=== PATIENT | female | born 1995 | race Caucasian/White ===

== ENCOUNTER → 2016-06-18 | Outpatient (CLI) | payer OTHER ==
[~2016-06-18] MED LIST: PRENTAB8 PO
[2016-06-18 11:32] LABS: FOLATE 11.5 NG/ML; VITAMIN B12 LEVEL 318 PG/ML
[2016-06-18 11:39] LABS: ALBUMIN 3.9 GM/DL (3.2-5.2); ALBUMIN/GLOBULIN RATIO 1.44 (1.00-1.93); ALKALINE PHOSPHATASE 70 U/L (45-117); ALT/SGPT 25 U/L (12-78); ANION GAP 8 MEQ/L (8-16); AST/SGOT 16 U/L (15-37); BILIRUBIN,TOTAL 0.4 MG/DL (0.2-1.0); BLOOD UREA NITROGEN 11 MG/DL (7-18); CALCIUM LEVEL 8.6 MG/DL (8.5-10.1); CARBON DIOXIDE LEVEL 27 MEQ/L (21-32); CHLORIDE LEVEL 107 MEQ/L (98-107); CHOLESTEROL LEVEL 214 MG/DL (<200); CREATININE FOR GFR 0.73 MG/DL (0.55-1.02); GLOMERULAR FILTRATION RATE > 60.0 (>60); GLUCOSE, FASTING 83 MG/DL (70-105); MAGNESIUM LEVEL 2.1 MG/DL (1.8-2.4); SODIUM LEVEL 142 MEQ/L (136-145); TOTAL PROTEIN 6.6 GM/DL (6.4-8.2); TRIGLYCERIDES LEVEL 77 MG/DL (<150)
[2016-06-18 15:23] LABS: BASO % 0.3 % (0.0-1.0); EOS # 0.1 K/mm3 (0.0-0.50); EOS % 2.9 % (0.0-3.0); LARGE UNSTAINED CELL # 0.1 K/mm3 (0.0-0.4); LARGE UNSTAINED CELL % 1.6 % (0.0-4.0); LYMPH # 1.6 K/mm3 (1.5-6.5); LYMPH % 39.3 % (24.0-44.0); MEAN CORPUSCULAR HEMOGLOBIN 28.5 pg (27.0-33.0); MEAN CORPUSCULAR HGB CONC 32.4 g/dl (32.0-36.5); MEAN CORPUSCULAR VOLUME 88.2 fl (80.0-96.0); MONO # 0.2 K/mm3 (0.0-0.8); MONO % 4.8 % (0.0-5.0); NEUTROPHILS # 2.1 K/mm3 (1.8-7.7); PLATELET COUNT, AUTOMATED 135 k/mm3 (150-450); RED CELL DISTRIBUTION WIDTH 12.7 % (11.5-14.5); WHITE BLOOD COUNT 4.1 K/mm3 (4.0-10.0)
[2016-06-18 15:34] LABS: ADD MORPHOLOGY? YES
[2016-06-18 16:19] LABS: GIANT PLATELETS 1+
== END ==
LOC: M LAB 10:13
PROVIDERS: ATTEND Emergency Medicine
DX: E55.9 Vitamin D deficiency, unspecified (principal); R20.8 Other disturbances of skin sensation; R00.2 Palpitations

== ENCOUNTER → 2016-10-20 | Outpatient (REF) | payer OTHER ==
[~2016-10-20] MED LIST changes: +CARA1TAB6 PO; +PROT1TAB2 PO
[2016-10-20 12:10] LABS: INR 1.06
[2016-10-20 12:25] LABS: ALBUMIN 4.7 GM/DL (3.2-5.2); FREE T4 1.14 NG/DL (0.76-1.46)
[2016-10-20 12:48] LABS: BASO % 0.5 % (0.0-1.0); LYMPH % 32.7 % (24.0-44.0); MEAN CORPUSCULAR HEMOGLOBIN 29.3 pg (27.0-33.0); MEAN CORPUSCULAR VOLUME 88.7 fl (80.0-96.0); MONO % 6.5 % (0.0-5.0); PLATELET COUNT, AUTOMATED 125 k/mm3 (150-450); WHITE BLOOD COUNT 4.4 K/mm3 (4.0-10.0)
[2016-10-20 12:49] LABS: EOS # 0.1 K/mm3 (0.0-0.50); LARGE UNSTAINED CELL # 0.1 K/mm3 (0.0-0.4); LARGE UNSTAINED CELL % 2.3 % (0.0-4.0); LYMPH # 1.4 K/mm3 (1.5-6.5); MONO # 0.3 K/mm3 (0.0-0.8); NEUTROPHILS # 2.5 K/mm3 (1.8-7.7)
[2016-10-20 14:48] LABS: REASON FOR REVIEW COMPREHENSIVE REVIEW
== END ==
LOC: M SFHCPLAZ 09:29
PROVIDERS: ATTEND Family Medicine
DX: R63.4 Abnormal weight loss (principal); R23.8 Other skin changes

== ENCOUNTER 2016-10-21 01:12 | Emergency (ER) | payer OTHER ==
[~2016-10-21] VITALS: Ht 175.3 cm; Wt 62.7 kg
[~2016-10-21 01:12] MED LIST changes: -CARA1TAB6 PO; -PROT1TAB2 PO
--- NOTE | 2016-10-21 03:20 | REPUSA ---
CLINICAL HISTORY: Abdominal pain. TECHNIQUE: Realtime sonographic images were obtained in multiple projections. COMMENTS: The liver is of normal size, parenchyma demonstrates normal echogenicity. No discrete hepatic mass is seen. There is no intra or extrahepatic biliary ductal dilatation. CBD measures 2mm. The gallbladder is underdistended without evidence of calculi. The gallbladder wall is not thickened and there is no pericholecystic fluid. There is no abdominal ascites. The right kidney measures 10.7 x 4.7 x 4.0 cm, free of hydronephrosis. IMPRESSION: Unremarkable study. Thank you for your kind referral of this patient.
[2016-10-21 03:48] LABS: CONTROL LINE HCG INT CTR LINE PRESENT
[2016-10-21 03:52] LABS: BASO % 0.5 % (0.0-1.0); EOS # 0.1 K/mm3 (0.0-0.50); EOS % 1.3 % (0.0-3.0); LARGE UNSTAINED CELL # 0.1 K/mm3 (0.0-0.4); LARGE UNSTAINED CELL % 1.9 % (0.0-4.0); LYMPH # 2.2 K/mm3 (1.5-6.5); LYMPH % 35.3 % (24.0-44.0); MEAN CORPUSCULAR HEMOGLOBIN 29.2 pg (27.0-33.0); MEAN CORPUSCULAR HGB CONC 33.3 g/dl (32.0-36.5); MEAN CORPUSCULAR VOLUME 87.7 fl (80.0-96.0); MONO # 0.4 K/mm3 (0.0-0.8); MONO % 6.8 % (0.0-5.0); NEUTROPHILS # 3.3 K/mm3 (1.8-7.7); NEUTROPHILS % 54.3 % (36.0-66.0); PLATELET COUNT, AUTOMATED 132 k/mm3 (150-450)
[2016-10-21 03:55] LABS: ALBUMIN 4.3 GM/DL (3.2-5.2); ALBUMIN/GLOBULIN RATIO 1.43 (1.00-1.93); ALKALINE PHOSPHATASE 67 U/L (45-117); ALT/SGPT 21 U/L (12-78); AMYLASE 38 U/L (25-115); ANION GAP 10 MEQ/L (8-16); AST/SGOT 16 U/L (15-37); BILIRUBIN,DIRECT 0.1 MG/DL (0.0-0.2); BILIRUBIN,TOTAL 0.6 MG/DL (0.2-1.0); BLOOD UREA NITROGEN 12 MG/DL (7-18); CALCIUM LEVEL 9.3 MG/DL (8.5-10.1); CARBON DIOXIDE LEVEL 27 MEQ/L (21-32); CHLORIDE LEVEL 106 MEQ/L (98-107); CREATININE FOR GFR 0.83 MG/DL (0.55-1.02); GLOMERULAR FILTRATION RATE > 60.0 (>60); GLUCOSE, FASTING 86 MG/DL (70-105); SODIUM LEVEL 143 MEQ/L (136-145); TOTAL PROTEIN 7.3 GM/DL (6.4-8.2)
[2016-10-21] MEDS ORDERED: PROT1TAB2 PO (04:29)
[2016-10-21] MEDS ORDERED: PANTOPRAZOLE 40MG TAB (PROTONIX) PO ONE (04:30)
[2016-10-21 04:33] VITALS: BP 113/66
== END 2016-10-21 04:44 | disposition home or self-care (01) ==
LOC: M ED 01:12
DX: K29.70 Gastritis, unspecified, without bleeding (principal); Z79.899 Other long term (current) drug therapy

== ENCOUNTER → 2016-10-28 | Outpatient (REF) | payer OTHER ==
[~2016-10-28] MED LIST changes: +CARA1TAB6 PO; +PROT1TAB2 PO
[2016-10-28 16:41] LABS: REASON FOR REVIEW COMPREHENSIVE REVIEW
[2016-10-31 00:06] LABS: H PYLORI SERUM QUANT IgG ABY <0.9 U/mL (0.0-0.8)
== END ==
LOC: M SFHCPLAZ 14:21
PROVIDERS: ATTEND Family Medicine
DX: R10.13 Epigastric pain (principal); D69.6 Thrombocytopenia, unspecified

== ENCOUNTER 2016-11-16 22:47 | Emergency (ER) | payer OTHER ==
[~2016-11-16] VITALS: Ht 175.3 cm; Wt 61.3 kg
[~2016-11-16 22:47] MED LIST changes: -CARA1TAB6 PO
[2016-11-17] MEDS ORDERED: GI COCKTAIL 50ML BTL(HYOSCYAMINE/MAALOX/LIDOCAINE VISCOUS)(1:3:1) PO ONE (01:30)
[2016-11-17 01:56] LABS: ALBUMIN/GLOBULIN RATIO 1.33 (1.00-1.93); ALKALINE PHOSPHATASE 70 U/L (45-117); ALT/SGPT 23 U/L (12-78); AMYLASE 56 U/L (25-115); ANION GAP 5 MEQ/L (8-16); AST/SGOT 18 U/L (15-37); BILIRUBIN,DIRECT < 0.1 MG/DL (0.0-0.2); BILIRUBIN,TOTAL 0.3 MG/DL (0.2-1.0); BLOOD UREA NITROGEN 15 MG/DL (7-18); CALCIUM LEVEL 9.4 MG/DL (8.5-10.1); CARBON DIOXIDE LEVEL 29 MEQ/L (21-32); CHLORIDE LEVEL 106 MEQ/L (98-107); CREATININE FOR GFR 0.94 MG/DL (0.55-1.02); GLOMERULAR FILTRATION RATE > 60.0 (>60); GLUCOSE, FASTING 112 MG/DL (70-105); POTASSIUM SERUM 4.7 MEQ/L (3.5-5.1); SODIUM LEVEL 140 MEQ/L (136-145)
[2016-11-17 02:02] LABS: BASO % 0.6 % (0.0-1.0); EOS # 0.1 K/mm3 (0.0-0.50); EOS % 1.8 % (0.0-3.0); LARGE UNSTAINED CELL # 0.1 K/mm3 (0.0-0.4); LARGE UNSTAINED CELL % 1.7 % (0.0-4.0); LYMPH # 2.3 K/mm3 (1.5-6.5); LYMPH % 35.1 % (24.0-44.0); MEAN CORPUSCULAR HEMOGLOBIN 28.6 pg (27.0-33.0); MEAN CORPUSCULAR HGB CONC 32.6 g/dl (32.0-36.5); MEAN CORPUSCULAR VOLUME 87.7 fl (80.0-96.0); MONO # 0.3 K/mm3 (0.0-0.8); MONO % 4.1 % (0.0-5.0); NEUTROPHILS # 3.8 K/mm3 (1.8-7.7); NEUTROPHILS % 56.7 % (36.0-66.0); PLATELET COUNT, AUTOMATED 135 k/mm3 (150-450); RED CELL DISTRIBUTION WIDTH 12.8 % (11.5-14.5); WHITE BLOOD COUNT 6.7 K/mm3 (4.0-10.0)
[2016-11-17] MEDS ORDERED: CARA1TAB6 PO (02:15)
[2016-11-17 02:21] VITALS: BP 122/78
--- NOTE | 2016-11-17 07:17 | REP ---
Clinical: Epigastric and abdominal pain. Technique: Upright view of the chest with supine and upright views of the abdomen and pelvis. Findings: Frontal upright view of the chest demonstrates no acute cardiopulmonary process or free air below the diaphragm to suspect pneumoperitoneum. Supine and upright views of the abdomen and pelvis demonstrate nonspecific bowel gas pattern without obstruction or perforation. Mild fecal stasis cannot be excluded. No organomegaly. No abnormal calcifications. Skeletal structures normal for age. Impression: Nonspecific bowel gas pattern. Signed by Geovany Ralph MD 11/17/2016 07:08 A
== END 2016-11-17 02:24 | disposition home or self-care (01) ==
LOC: M ED 22:47
DX: R10.13 Epigastric pain (principal); Z79.899 Other long term (current) drug therapy

== ENCOUNTER → 2017-02-16 | Outpatient (REF) | payer OTHER ==
[~2017-02-16] MED LIST changes: +CARA1TAB6 PO
== END ==
LOC: M LAB REF 19:21
PROVIDERS: ATTEND Physician Assistant
DX: J02.9 Acute pharyngitis, unspecified (principal)

== ENCOUNTER 2017-02-19 05:46 | Emergency (ER) | payer OTHER ==
[~2017-02-19] VITALS: Ht 177.8 cm; Wt 61.4 kg
[2017-02-19 05:46] VITALS: BP 125/81
== END 2017-02-19 07:03 | disposition left against medical advice (07) ==
LOC: M ED 05:46
DX: Z53.21 Procedure and treatment not carried out due to patient leaving prior to being seen by health care provider (principal); R06.02 Shortness of breath

== ENCOUNTER 2017-05-15 06:01 | Emergency (ER) | payer OTHER ==
[2017-05-15] MEDS: SUMAtriptan SUCCINATE 6 MG/0.5 ML VIAL SC (06:45)
[2017-05-15] MEDS: ACETAMINOPHEN 325 MG TAB PO (08:17)
[2017-05-15] MEDS: IBUPROFEN 800 MG TAB PO (08:17)
== END 2017-05-15 09:23 | disposition home or self-care (01) ==
LOC: M ED 06:01
DX: R51 Headache (principal); Z86.69 Personal history of other diseases of the nervous system and sense organs
CPT/HCPCS: 93005

== ENCOUNTER → 2017-05-20 | Outpatient (REF) | payer OTHER ==
[2017-05-20 13:14] LABS: BASO % 0.6 % (0.0-1.0); EOS # 0.1 10^3/uL (0.0-0.50); HEMATOCRIT 39.1 % (36.0-47.0); HEMOGLOBIN 12.7 g/dl (12.0-16.0); IMMATURE GRANULOCYTE % 0.2 % (0-3.0); LYMPH # 1.8 10^3/uL (1.5-6.5); LYMPH % 32.7 % (24.0-44.0); MEAN CORPUSCULAR HEMOGLOBIN 28.7 pg (27.0-33.0); MEAN CORPUSCULAR HGB CONC 32.5 g/dl (32.0-36.5); MEAN CORPUSCULAR VOLUME 88.3 fl (80.0-96.0); MONO # 0.5 10^3/uL (0.0-0.8); MONO % 8.7 % (0.0-5.0); NEUTROPHILS % 55.8 % (36.0-66.0); PLATELET COUNT, AUTOMATED 135 10^3/uL (150-450); RED BLOOD COUNT 4.43 10^6/uL (4.00-5.40); RED CELL DISTRIBUTION WIDTH 13.1 % (11.5-14.5); WHITE BLOOD COUNT 5.4 10^3/uL (4.0-10.0)
== END ==
LOC: M LABDRAW1 11:54
DX: D69.6 Thrombocytopenia, unspecified (principal)

== ENCOUNTER → 2017-08-26 | Outpatient (REF) | payer OTHER ==
[2017-08-26 18:18] LABS: FREE T4 0.95 NG/DL (0.76-1.46); THYROID STIMULATING HORMONE 0.488 uIU/ML (0.358-3.740)
[2017-08-27 09:48] LABS: TOTAL 25(OH) VITAMIN D 16.9 NG/ML (30.0-100.0)
== END ==
LOC: M SFHCPLAZ 14:41
DX: R00.0 Tachycardia, unspecified (principal); F43.23 Adjustment disorder with mixed anxiety and depressed mood

== ENCOUNTER → 2017-10-27 | Outpatient (REF) | payer OTHER ==
[2017-10-27 11:55] LABS: CONTROL LINE UCG INT CTR LINE PRESENT; URINE PREG TEST NEGATIVE (NEGATIVE)
[2017-10-27 13:23] LABS: CHLAMYDIA DNA AMPLIFICATION NEGATIVE (NEGATIVE); GC DNA AMPLIFICATION NEGATIVE (NEGATIVE)
== END ==
LOC: M SFHCPLAZ 09:10
DX: Z30.8 Encounter for other contraceptive management (principal)
CPT/HCPCS: 84703

== ENCOUNTER → 2018-03-29 | Outpatient (CLI) | payer OTHER ==
[~2018-03-29] MED LIST changes: +IBUP80TA PO
--- NOTE | 2018-03-29 18:15 | REP ---
RIGHT TIBIA AND FIBULA, FOUR VIEWS: HISTORY: Pain. There is no acute fracture or dislocation. The joint spaces are normal in appearance. IMPRESSION: There is no acute fracture or dislocation. Electronically Signed by Jaylen Guthrie MD 03/29/2018 06:49 P
== END ==
LOC: M LRY 17:39
PROVIDERS: ATTEND Physician Assistant
DX: S89.91XA Unspecified injury of right lower leg, initial encounter (principal); S80.11XA Contusion of right lower leg, initial encounter; W18.30XA Fall on same level, unspecified, initial encounter; Y92.009 Unspecified place in unspecified non-institutional (private) residence as the place of occurrence of the external cause

== ENCOUNTER → 2018-11-28 | Outpatient (CLI) | payer OTHER ==
[2018-11-28 17:59] LABS: BASO % 0.5 % (0.0-1.0); EOS # 0.1 10^3/uL (0.0-0.5); EOS % 2.1 % (0.0-3.0); LYMPH # 1.6 10^3/uL (1.5-5.0); LYMPH % 24.9 % (24.0-44.0); MEAN CORPUSCULAR HEMOGLOBIN 30.4 pg (27.0-33.0); MEAN CORPUSCULAR HGB CONC 33.3 g/dl (32.0-36.5); MEAN CORPUSCULAR VOLUME 91.1 fl (80.0-96.0); MONO # 0.5 10^3/uL (0.0-0.8); MONO % 7.8 % (0.0-5.0); NEUTROPHILS # 4.1 10^3/uL (1.5-8.5); NEUTROPHILS % 64.4 % (36.0-66.0); PLATELET COUNT, AUTOMATED 135 10^3/uL (150-450); RED BLOOD COUNT 3.95 10^6/uL (4.00-5.40); WHITE BLOOD COUNT 6.3 10^3/uL (4.0-10.0)
[2018-11-28 18:56] LABS: CHLAMYDIA DNA AMPLIFICATION POSITIVE (NEGATIVE); GC DNA AMPLIFICATION NEGATIVE (NEGATIVE)
[2018-11-29 02:25] LABS: HIV 1&2 SCREEN CENTAUR NEGATIVE (NEGATIVE); RUBELLA IgG QUALITATIVE IMMUNE (IMMUNE)
[2018-11-30 07:23] LABS: HEPATITIS C VIRUS ABY INDEX 0.1 INDEX (<0.8)
== END ==
LOC: M SMT 14:33
PROVIDERS: ATTEND Advanced Practice Midwife
DX: Z34.81 Encounter for supervision of other normal pregnancy, first trimester (principal); Z3A.00 Weeks of gestation of pregnancy not specified

== ENCOUNTER → 2018-12-16 | Outpatient (REF) | payer OTHER ==
[2018-12-19 12:47] LABS: CHLAMYDIA DNA AMPLIFICATION NEGATIVE (NEGATIVE); GC DNA AMPLIFICATION NEGATIVE (NEGATIVE)
== END ==
LOC: M LAB REF 09:56
PROVIDERS: ATTEND Advanced Practice Midwife
DX: Z34.82 Encounter for supervision of other normal pregnancy, second trimester (principal); Z3A.00 Weeks of gestation of pregnancy not specified

== ENCOUNTER → 2019-01-09 | Outpatient (CLI) | payer OTHER ==
--- NOTE | 2019-01-09 17:47 | REP ---
Clinical: Anatomical evaluation. Comparison: None . Findings: Examination demonstrates a single live intrauterine in breech presentation. motion is identified by technologist. Placenta is noted posterior/fundal and grade zero without evidence for placenta previa or abruption. Amniotic fluid volume is normal. Cervix measures 3.1 cm in length and appears closed. No evidence for nuchal cord. Gestational age by LMP 18 weeks 3 days with BABAR 06/09/2019 . Gestational age by current measurements 18 weeks 1 day with BABAR 06/11/2019 . FHR equals 152 beats per minute. BPD 4.0 cm 18 weeks 0 day HC 14.9 cm 18 weeks 0 days AC 12.5 cm 18 weeks 1 day FL 2.6 cm 17 weeks 5 days HL 2.7 cm 18 weeks for the HC/AC ratio 1.20 Estimated weight 216 grams ( 29 percentile). Anatomical assessment demonstrates normal structures including cranium, choroid plexus, lungs, diaphragm, stomach, cord insertion, and bladder. Impression: Single live intrauterine in breech presentation demonstrating appropriate interval growth. Anatomical assessment is limited and incomplete due to early gestational age. Consider reevaluation at 21-23 weeks. Electronically Signed by Geovany Ralph MD 01/09/2019 05:39 P
== END ==
LOC: M RAD 15:07
PROVIDERS: ATTEND Advanced Practice Midwife
DX: O32.1XX0 Maternal care for breech presentation, not applicable or unspecified (principal); Z36.89 Encounter for other specified antenatal screening; Z3A.18 18 weeks gestation of pregnancy

== ENCOUNTER → 2019-03-08 | Outpatient (CLI) | payer MEDICAID ==
[2019-03-08 12:10] LABS: HEMATOCRIT 34.8 % (36.0-47.0); HEMOGLOBIN 11.1 g/dl (12.0-15.5); MEAN CORPUSCULAR HEMOGLOBIN 30.2 pg (27.0-33.0); MEAN CORPUSCULAR HGB CONC 31.9 g/dl (32.0-36.5); MEAN CORPUSCULAR VOLUME 94.6 fl (80.0-96.0); PLATELET COUNT, AUTOMATED 159 10^3/uL (150-450); RED BLOOD COUNT 3.68 10^6/uL (4.00-5.40)
== END ==
LOC: M LAB 10:42
PROVIDERS: ATTEND Advanced Practice Midwife
DX: O99.112 Other diseases of the blood and blood-forming organs and certain disorders involving the immune mechanism complicating pregnancy, second trimester (principal); Z3A.00 Weeks of gestation of pregnancy not specified

== ENCOUNTER 2019-03-27 09:01 | Emergency (ER) | payer MEDICAID ==
[~2019-03-27] VITALS: Ht 177.8 cm; Wt 81.9 kg
[2019-03-27] MEDS ORDERED: FERR32TA (09:09)
[2019-03-27] MEDS ORDERED: PRENTAB29 (09:09)
[2019-03-27] MEDS ORDERED: DOCU100C16 (09:09)
[2019-03-27 09:44] LABS: BASO % 0.3 % (0.0-1.0); EOS # 0.1 10^3/uL (0.0-0.5); EOS % 1.2 % (0.0-3.0); HEMATOCRIT 34.2 % (36.0-47.0); HEMOGLOBIN 11.2 g/dl (12.0-15.5); LYMPH # 1.4 10^3/uL (1.5-5.0); LYMPH % 13.3 % (24.0-44.0); MEAN CORPUSCULAR HEMOGLOBIN 30.5 pg (27.0-33.0); MEAN CORPUSCULAR HGB CONC 32.7 g/dl (32.0-36.5); MEAN CORPUSCULAR VOLUME 93.2 fl (80.0-96.0); MONO # 0.6 10^3/uL (0.0-0.8); MONO % 5.4 % (0.0-5.0); NEUTROPHILS # 8.2 10^3/uL (1.5-8.5); NEUTROPHILS % 78.4 % (36.0-66.0); PLATELET COUNT, AUTOMATED 137 10^3/uL (150-450); RED BLOOD COUNT 3.67 10^6/uL (4.00-5.40); WHITE BLOOD COUNT 10.4 10^3/uL (4.0-10.0)
[2019-03-27] MEDS ORDERED: NS 1,000 ML IV ONE ×2 (09:45→11:15)
[2019-03-27 09:57] LABS: INR 0.99; PROTHROMBIN TIME 12.8 SECONDS (11.8-14.0)
[2019-03-27 09:58] LABS: PARTIAL THROMBOPLASTIN TIME 28.3 SECONDS (25.0-38.4)
[2019-03-27 10:14] LABS: ALBUMIN 2.8 GM/DL (3.2-5.2); ALT/SGPT 14 U/L (12-78); BILIRUBIN,DIRECT < 0.1 MG/DL (0.0-0.2); BILIRUBIN,TOTAL 0.1 MG/DL (0.2-1.0); BLOOD UREA NITROGEN 8 MG/DL (7-18); CALCIUM LEVEL 8.4 MG/DL (8.5-10.1); CARBON DIOXIDE LEVEL 23 MEQ/L (21-32); CHLORIDE LEVEL 106 MEQ/L (98-107); CK-MB VALUE MASS < 1.0 NG/ML (<3.6); CPK CREATINE PHOSPHOKINASE 37 U/L (26-192); CREATININE FOR GFR 0.56 MG/DL (0.55-1.30); FREE T4 0.88 NG/DL (0.76-1.46); GLOMERULAR FILTRATION RATE > 60.0 (>60); GLUCOSE, FASTING 93 MG/DL (70-100); LIPASE 141 U/L (73-393); POTASSIUM SERUM 3.7 MEQ/L (3.5-5.1); SODIUM LEVEL 138 MEQ/L (136-145); TOTAL PROTEIN 6.6 GM/DL (6.4-8.2); TROPONIN I < 0.02 NG/ML (< 0.10)
[2019-03-27] MEDS ORDERED: ACETAMINOPHEN TAB 650MG DOSE (2X325MG) PO ONE (11:00)
[2019-03-27 11:08] LABS: AMPHETAMINES LEVEL URINE NEGATIVE (NEGATIVE); BARBITURATES URINE NEGATIVE (NEGATIVE); BENZODIAZEPINES URINE NEGATIVE (NEGATIVE); CANNABINOIDS URINE NEGATIVE (NEGATIVE); COCAINE METABOLITE URINE NEGATIVE (NEGATIVE); INFLUENZA A AMPLIFICATION NEGATIVE (NEGATIVE); INFLUENZA B AMPLIFICATION NEGATIVE (NEGATIVE); METHADONE URINE NEGATIVE (NEGATIVE); OPIATES URINE NEGATIVE (NEGATIVE); PHENCYCLIDINE URINE NEGATIVE (NEGATIVE)
[2019-03-27 14:00] VITALS: BP 116/67
[2019-03-27] MEDS ORDERED: PRENTAB9 PO (15:04)
--- NOTE | 2019-03-29 07:36 | ECGEPIP ---
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
== END 2019-03-27 14:38 | disposition admitted as inpatient to this hospital (09) ==
LOC: M ED 09:01
DX: O26.53 Maternal hypotension syndrome, third trimester (principal); O99.513 Diseases of the respiratory system complicating pregnancy, third trimester; J45.909 Unspecified asthma, uncomplicated; O99.113 Other diseases of the blood and blood-forming organs and certain disorders involving the immune mechanism complicating pregnancy, third trimester; D68.0 Von Willebrand disease; Z3A.29 29 weeks gestation of pregnancy; Z79.899 Other long term (current) drug therapy

== ENCOUNTER 2019-03-27 14:42 | Outpatient (CLI) | payer MEDICAID ==
[~2019-03-27] VITALS: Ht 177.8 cm; Wt 81.3 kg
[~2019-03-27 14:42] MED LIST changes: +DOCU100C16; +FERR32TA; +PRENTAB29
[2019-03-27 14:57] VITALS: BP 118/70
[2019-03-27] MEDS ORDERED: PRENTAB9 PO (15:04)
--- NOTE | 2019-03-27 19:37 | IPNPDOC ---
Text Note Date of Service The patient was seen on 03/27/19. NOTE Subjective: Patient is a 24-year-old female who is a at 29.3 weeks gestation with an BABAR of 06/09/19 based off of her LMP and consistent with her first trimester ultrasound. She initiated care in her first trimester with AWP. 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 She presented to the ED after feeling dizzy, light headed, with shakes. Dr. Ridley evaluated patient and gave her 2 bags of fluid due to orthostatic hypotension. She was then brought up to L&D for a NST and reassurance. Patient reports that she feels better since being hydrated. She denies contractions but does reports some abdominal tightening at times that has no discomfort to it. She denies vaginal bleeding or leaking of fluid. She states she feels the baby moving often. Objective: VS: see below. FHR 140, moderate variability, positive accelerations, no deceleration. Contractions: occasional 20 second contractions. A+O x3. Respiratory rate regular with no use of accessory muscles. Abdomen gravid, soft and non-tender with palpation. SVE: closed and thick. Assessment: IUP at 29.3 weeks gestation, orthostatic hypotension related to dehydration, not in labor Plan: Patient encouraged to increase her fluid intake. She is to follow-up with her routine appointment this Wednesday. Reviewed access to care, kick count, labor signs, and danger signs go report. VS,[place], I+O VS, [place], I+O Vital Signs Date Time Temp Pulse Resp B/P (MAP) Pulse Ox O2 Delivery O2 Flow Rate FiO2 03/27/19 14:57 98.0 80 17 118/70 (86) 100 NEAL AHMADI CNM Mar 27, 2019 19:37
== END 2019-03-27 16:17 | disposition home or self-care (01) ==
LOC: M LDO 14:42
PROVIDERS: ATTEND Advanced Practice Midwife
DX: O26.53 Maternal hypotension syndrome, third trimester (principal); O99.283 Endocrine, nutritional and metabolic diseases complicating pregnancy, third trimester; E86.0 Dehydration; O47.03 False labor before 37 completed weeks of gestation, third trimester; Z3A.29 29 weeks gestation of pregnancy

== ENCOUNTER 2019-04-25 17:48 | Emergency (ER) | payer MEDICAID ==
[~2019-04-25] VITALS: Ht 177.8 cm; Wt 84.6 kg
[2019-04-25 17:48] VITALS: BP 141/85
[~2019-04-25 17:48] MED LIST changes: +PRENTAB9 PO
[2019-04-25 23:01] LABS: INFLUENZA A AMPLIFICATION NEGATIVE (NEGATIVE); INFLUENZA B AMPLIFICATION NEGATIVE (NEGATIVE)
[2019-04-26] MEDS ORDERED: OSEL75CA2 PO (00:21)
== END 2019-04-25 21:00 | disposition left against medical advice (07) ==
LOC: M ED 17:48
DX: Z53.29 Procedure and treatment not carried out because of patient's decision for other reasons (principal)

== ENCOUNTER 2019-04-25 20:49 | Outpatient (CLI) | payer MEDICAID ==
[~2019-04-25] VITALS: Ht 177.8 cm; Wt 84.0 kg
[2019-04-25 21:11] VITALS: BP 130/85
[2019-04-25] MEDS ORDERED: LACTATED RINGER'S 1000 ML IV STA (21:52)
[2019-04-25] MEDS ORDERED: FIORICET TAB PO ONE (22:00)
[2019-04-25] MEDS ORDERED: OSELTAMIVIR PHOSPHATE 75 MG CAP (TAMIFLU) PO ONE (22:00)
[2019-04-25 22:32] LABS: HEMATOCRIT 37.2 % (36.0-47.0); HEMOGLOBIN 11.8 g/dl (12.0-15.5); MEAN CORPUSCULAR HEMOGLOBIN 29.3 pg (27.0-33.0); MEAN CORPUSCULAR HGB CONC 31.7 g/dl (32.0-36.5); MEAN CORPUSCULAR VOLUME 92.3 fl (80.0-96.0); PLATELET COUNT, AUTOMATED 135 10^3/uL (150-450); RED BLOOD COUNT 4.03 10^6/uL (4.00-5.40); WHITE BLOOD COUNT 10.9 10^3/uL (4.0-10.0)
[2019-04-25 23:00] VITALS: BP 141/78
[2019-04-25 23:51] VITALS: BP 127/77
[2019-04-26] MEDS ORDERED: OSEL75CA2 PO (00:21)
== END 2019-04-26 00:30 | disposition home or self-care (01) ==
LOC: M LDO 20:49
PROVIDERS: ATTEND Obstetrics & Gynecology
DX: O26.893 Other specified pregnancy related conditions, third trimester (principal); R10.2 Pelvic and perineal pain; R51 Headache; Z20.828 Contact with and (suspected) exposure to other viral communicable diseases; Z3A.33 33 weeks gestation of pregnancy

== ENCOUNTER → 2019-05-09 | Outpatient (REF) | payer MEDICAID ==
[~2019-05-09] MED LIST changes: +OSEL75CA2 PO
== END ==
LOC: M SFHCWAGY 12:21
PROVIDERS: ATTEND Advanced Practice Midwife
DX: O09.213 Supervision of pregnancy with history of pre-term labor, third trimester (principal); Z36.85 Encounter for antenatal screening for Streptococcus B; Z3A.00 Weeks of gestation of pregnancy not specified

== ENCOUNTER → 2019-05-15 | Outpatient (CLI) | payer MEDICAID, OTHER | LOC: M PLALAB 14:20 | PROVIDERS: ATTEND Advanced Practice Midwife | DX: O09.213 Supervision of pregnancy with history of pre-term labor, third trimester (principal); Z3A.00 Weeks of gestation of pregnancy not specified ==

== ENCOUNTER 2019-05-30 18:58 | Inpatient (IN) | payer MEDICAID, OTHER ==
[2019-05-30] VITALS (7 sets, daily range): BP systolic 130–140; BP diastolic 80–93
[~2019-05-30] VITALS: Ht 177.8 cm; Wt 92.3 kg
[2019-05-30] MEDS ORDERED: LR 1,000 ML IV SCH (21:48)
[2019-05-30] MEDS ORDERED: OXYTOCIN DRIP 30 UNITS in IV 1 EA IV SCH (22:00)
[2019-05-30 22:09] LABS: HEMATOCRIT 34.4 % (36.0-47.0); HEMOGLOBIN 11.1 g/dl (12.0-15.5); MEAN CORPUSCULAR HEMOGLOBIN 29.4 pg (27.0-33.0); MEAN CORPUSCULAR HGB CONC 32.3 g/dl (32.0-36.5); PLATELET COUNT, AUTOMATED 143 10^3/uL (150-450); RED BLOOD COUNT 3.78 10^6/uL (4.00-5.40); WHITE BLOOD COUNT 10.8 10^3/uL (4.0-10.0)
[2019-05-31 01:00] VITALS: BP 129/83
[2019-05-31 02:33] VITALS: BP 140/79
[2019-05-31 02:49] VITALS: BP 148/72
[2019-05-31] MEDS ORDERED: ONDANSETRON 4MG/2ML VIAL (J2405) IV PRN (03:15)
[2019-05-31] MEDS ORDERED: RHOGAM 300 MCG (1500 IU) INJ (J2790) IM SCH (03:15)
[2019-05-31] MEDS ORDERED: ACETAMINOPHEN 500 MG TAB PO PRN (03:15)
[2019-05-31] MEDS ORDERED: OXYTOCIN DRIP 30 UNITS in IV 1 EA IV ONE (03:15)
[2019-05-31] MEDS ORDERED: METHYLERGONOVINE MALEATE 0.2 MG TAB PO PRN (03:15)
[2019-05-31] MEDS ORDERED: DIBUCAINE 1% OINTMENT 30GM TOP PRN (03:15)
[2019-05-31] MEDS ORDERED: DOCUSATE SODIUM 100 MG CAP PO PRN (03:15)
[2019-05-31] MEDS ORDERED: IBUPROFEN 600 MG TAB PO PRN (03:15)
[2019-05-31] MEDS ORDERED: MEASLES,MUMPS,RUBELLA VACCINE INJ (MMR-II) (90707) SC SCH (03:15)
[2019-05-31] MEDS ORDERED: ACETAMINOPHEN TAB 650MG DOSE (2X325MG) PO PRN (03:15)
[2019-05-31 03:18] VITALS: BP 134/73
[2019-05-31] MEDS: IBUPROFEN 800 MG TAB PO PRN ×2 (03:23→21:28)
[2019-05-31 06:00] VITALS: BP 139/70
--- NOTE | 2019-05-31 06:42 | HPE ---
DATE OF ADMISSION: 05/30/2019 24-year-old 3, para 1-1-0-2 female at 38-3/7 weeks gestation by last menstrual period (LMP) consistent with 10 week ultrasound presents with contraction every 1-2 minutes for the last several hours. The contractions increased in intensity. She had a small amount of vaginal bleeding. OBSTETRICAL HISTORY: 1. October 2011 at 39 weeks, vaginal delivery, 7 pound 14 ounce male . 2. October 2013 at 33 weeks, vaginal delivery, 4 pound 8 ounce male infant. MEDICAL HISTORY: Noncontributory. SURGICAL HISTORY: Tonsillectomy. ALLERGIES: None. SOCIAL HISTORY: Father of the baby is involved. The patient denies cigarettes, alcohol or drug use. She lives in [place], [place]. FAMILY HISTORY: Noncontributory. PHYSICAL EXAMINATION: Blood pressure 134/74, pulse 84, afebrile. She appears uncomfortable. Head/neck exam: Normal. Lungs: Clear. Heart: Regular rate and rhythm. Abdomen: Nontender, gravid. heart tones category 1. Contractions every 1-2 minutes. Sterile vaginal exam: 4 cm, 80%, -2, posterior, soft, vertex. Extremities nontender. LABS: Group B Streptococcus (GBS) negative. Blood type O positive. ASSESSMENT: 24-year-old G3, P2 female at 38-3/7 weeks gestation presents in labor. PLAN: Patient is admitted on 05/30/2019.
[2019-05-31] MEDS: PRENATAL VITAMINS CHEWABLE TABLET PO SCH (08:43)
--- NOTE | 2019-05-31 13:35 | DN ---
DATE: 05/31/2019 PREDELIVERY DIAGNOSIS: At 38 and 3, labor. POSTDELIVERY DIAGNOSIS: Delivered. PROCEDURE: Spontaneous vaginal delivery. TEST LEAD: Dr. Jaylen Lazcano ANESTHESIA: None. ESTIMATED BLOOD LOSS: 300 mL. FINDINGS: A 7-pound 11-ounce female infant, scores 8 and 9. DELIVERY SUMMARY: After a 5-minute second stage, the patient then spontaneously delivered a 7-pond 11-ounce female , scores 8 and 9 with no delivery anesthesia. Nuchal cord times one was reduced. The shoulders delivered with ease. The was handed to the mother. The cord was then clamped and cut. The placenta delivered spontaneously and appeared to be intact. The patient received intravenous (IV) Pitocin after delivery of the placenta. First-degree perineal laceration was repaired with 2-0 chromic under local anesthesia in the usual fashion. Sponge and needle counts were correct.
[2019-05-31 18:00] VITALS: BP 125/66
[2019-06-01 06:00] VITALS: BP 129/78
[2019-06-01] MEDS: PRENATAL VITAMINS CHEWABLE TABLET PO SCH (08:04)
== END 2019-06-01 17:50 | disposition home or self-care (01) | DRG 560 ==
LOC: M LDO 18:58 → M LDI 21:32 → M OBS 05-31 04:35
PROVIDERS: ADMIT Specialist; ATTEND Specialist
PROC: 10E0XZZ Delivery of Products of Conception, External Approach (ICD-10-PCS; principal; 2019-05-31)
PROC: 0HQ9XZZ Repair Perineum Skin, External Approach (ICD-10-PCS; 2019-05-31)
DX: O69.81X0 Labor and delivery complicated by cord around neck, without compression, not applicable or unspecified (principal); O70.0 First degree perineal laceration during delivery; Z37.0 Single live birth; Z3A.38 38 weeks gestation of pregnancy

== ENCOUNTER → 2019-07-25 | Outpatient (REF) | payer MEDICAID, OTHER ==
[2019-07-25 16:02] LABS: BASO % 0.4 % (0.0-1.0); EOS # 0.2 10^3/uL (0.0-0.5); EOS % 3.3 % (0.0-3.0); HEMATOCRIT 38.2 % (36.0-47.0); HEMOGLOBIN 12.3 g/dl (12.0-15.5); LYMPH # 1.9 10^3/uL (1.5-5.0); LYMPH % 36.3 % (24.0-44.0); MEAN CORPUSCULAR HGB CONC 32.2 g/dl (32.0-36.5); MEAN CORPUSCULAR VOLUME 90.1 fl (80.0-96.0); MONO # 0.4 10^3/uL (0.0-0.8); MONO % 7.7 % (0.0-5.0); NEUTROPHILS # 2.7 10^3/uL (1.5-8.5); NEUTROPHILS % 52.1 % (36.0-66.0); PLATELET COUNT, AUTOMATED 184 10^3/uL (150-450); RED BLOOD COUNT 4.24 10^6/uL (4.00-5.40); WHITE BLOOD COUNT 5.2 10^3/uL (4.0-10.0)
[2019-07-25 16:35] LABS: ALBUMIN 3.6 GM/DL (3.2-5.2); ALT/SGPT 19 U/L (12-78); BILIRUBIN,TOTAL 0.3 MG/DL (0.2-1.0); BLOOD UREA NITROGEN 12 MG/DL (7-18); CALCIUM LEVEL 8.8 MG/DL (8.5-10.1); CARBON DIOXIDE LEVEL 29 MEQ/L (21-32); CHLORIDE LEVEL 106 MEQ/L (98-107); CREATININE FOR GFR 0.73 MG/DL (0.55-1.30); FERRITIN 18 NG/ML (8-252); FREE T4 0.99 NG/DL (0.76-1.46); GLOMERULAR FILTRATION RATE > 60.0 (>60); GLUCOSE, FASTING 85 MG/DL (70-100); POTASSIUM SERUM 3.7 MEQ/L (3.5-5.1); SODIUM LEVEL 140 MEQ/L (136-145); TOTAL PROTEIN 6.8 GM/DL (6.4-8.2); VITAMIN B12 LEVEL 212 PG/ML (247-911)
[2019-07-25 16:58] LABS: H PYLORI QUALITATIVE IgG NEGATIVE (NEGATIVE)
== END ==
LOC: M SFHCPLAZ 13:44
PROVIDERS: ATTEND Family Medicine
DX: D69.6 Thrombocytopenia, unspecified (principal); D68.0 Von Willebrand disease; R10.13 Epigastric pain

== ENCOUNTER → 2020-05-06 | Outpatient (REF) | payer OTHER ==
[2020-05-06 14:44] LABS: BASO % 0.5 % (0.0-1.0); EOS # 0.1 10^3/uL (0.0-0.5); EOS % 1.5 % (0.0-3.0); HEMATOCRIT 40.8 % (36.0-47.0); HEMOGLOBIN 12.9 g/dl (12.0-15.5); LYMPH # 1.7 10^3/uL (1.5-5.0); MEAN CORPUSCULAR HEMOGLOBIN 28.3 pg (27.0-33.0); MEAN CORPUSCULAR HGB CONC 31.6 g/dl (32.0-36.5); MEAN CORPUSCULAR VOLUME 89.5 fl (80.0-96.0); MONO # 0.5 10^3/uL (0.0-0.8); MONO % 7.8 % (0.0-8.0); NEUTROPHILS # 3.7 10^3/uL (1.5-8.5); PLATELET COUNT, AUTOMATED 182 10^3/uL (150-450); RED BLOOD COUNT 4.56 10^6/uL (4.00-5.40); WHITE BLOOD COUNT 5.9 10^3/uL (4.0-10.0)
[2020-05-06 14:54] LABS: ALBUMIN 3.3 GM/DL (3.2-5.2); ALT/SGPT 17 U/L (12-78); BILIRUBIN,TOTAL 0.2 MG/DL (0.2-1.0); BLOOD UREA NITROGEN 11 MG/DL (7-18); CARBON DIOXIDE LEVEL 28 MEQ/L (21-32); CHLORIDE LEVEL 107 MEQ/L (98-107); CHOLESTEROL LEVEL 291 MG/DL (<200); CHOLESTEROL RISK RATIO 3.464 (<5); CREATININE FOR GFR 0.78 MG/DL (0.55-1.30); FERRITIN 26 NG/ML (8-252); FREE T4 0.86 NG/DL (0.76-1.46); GLOMERULAR FILTRATION RATE > 60.0 (>60); GLUCOSE, FASTING 91 MG/DL (70-100); HDL CHOLESTEROL 84 MG/DL (>40); LDL CHOLESTEROL 168 MG/DL (<100); NON-HDL-C 207 MG/DL; POTASSIUM SERUM 4.3 MEQ/L (3.5-5.1); SODIUM LEVEL 141 MEQ/L (136-145); TRIGLYCERIDES LEVEL 194 MG/DL (<150)
[2020-05-06 14:56] LABS: PTH INTACT 61.5 PG/ML (18.5-88.0); VITAMIN B12 LEVEL 1340 PG/ML (247-911)
== END ==
LOC: M SFHCPLAZ 10:47
PROVIDERS: ATTEND Family Medicine
DX: E53.8 Deficiency of other specified B group vitamins (principal); F32.9 Major depressive disorder, single episode, unspecified; F51.04 Psychophysiologic insomnia

== ENCOUNTER 2020-06-10 19:31 | Inpatient (IN) | payer OTHER ==
[~2020-06-10] VITALS: Ht 177.8 cm; Wt 80.1 kg
[2020-06-10] MEDS ORDERED: VENL75TA2 PO (19:51)
[2020-06-10] MEDS ORDERED: TRAZ-257 PO ×2 (19:51→22:20)
[2020-06-10] MEDS ORDERED: ALPR0.25 PO ×2 (19:51→22:20)
[2020-06-10] MEDS ORDERED: ARIP1TAB4 PO (19:51)
[2020-06-10] MEDS ORDERED: NOXI1TAB PO (19:51)
[2020-06-10] MEDS ORDERED: GI COCKTAIL 50ML BTL(HYOSCYAMINE/MAALOX/LIDOCAINE VISCOUS)(1:3:1) PO ONE (20:35)
[2020-06-10] MEDS ORDERED: PANTOPRAZOLE 40MG VIAL (C9113 PER 1) IV ONE (20:35)
[2020-06-10 21:07] LABS: BASO % 0.3 % (0.0-1.0); EOS # 0.1 10^3/uL (0.0-0.5); EOS % 0.7 % (0.0-3.0); HEMATOCRIT 40.8 % (36.0-47.0); HEMOGLOBIN 13.1 g/dl (12.0-15.5); LYMPH # 1.7 10^3/uL (1.5-5.0); LYMPH % 13.6 % (24.0-44.0); MEAN CORPUSCULAR HEMOGLOBIN 28.7 pg (27.0-33.0); MEAN CORPUSCULAR HGB CONC 32.1 g/dl (32.0-36.5); MEAN CORPUSCULAR VOLUME 89.3 fl (80.0-96.0); MONO # 0.7 10^3/uL (0.0-0.8); MONO % 5.9 % (2.0-8.0); NEUTROPHILS # 9.9 10^3/uL (1.5-8.5); NEUTROPHILS % 79.1 % (36.0-66.0); PLATELET COUNT, AUTOMATED 181 10^3/uL (150-450); RED BLOOD COUNT 4.57 10^6/uL (4.00-5.40); WHITE BLOOD COUNT 12.5 10^3/uL (4.0-10.0)
[2020-06-10 21:45] LABS: ALBUMIN 3.7 GM/DL (3.2-5.2); ALT/SGPT 15 U/L (12-78); BILIRUBIN,DIRECT < 0.1 MG/DL (0.0-0.2); BILIRUBIN,TOTAL 0.1 MG/DL (0.2-1.0); BLOOD UREA NITROGEN 8 MG/DL (7-18); CALCIUM LEVEL 8.9 MG/DL (8.5-10.1); CARBON DIOXIDE LEVEL 29 MEQ/L (21-32); CHLORIDE LEVEL 107 MEQ/L (98-107); CK-MB VALUE MASS < 1.0 NG/ML (<3.6); CPK CREATINE PHOSPHOKINASE 119 U/L (26-192); CREATININE FOR GFR 0.81 MG/DL (0.55-1.30); GLOMERULAR FILTRATION RATE > 60.0 (>60); GLUCOSE, FASTING 105 MG/DL (70-100); MB/CK RELATIVE INDEX 0.84 (< OR =4); POTASSIUM SERUM 3.7 MEQ/L (3.5-5.1); SODIUM LEVEL 141 MEQ/L (136-145); TOTAL PROTEIN 7.3 GM/DL (6.4-8.2); TROPONIN I < 0.02 NG/ML (< 0.10)
[2020-06-10 21:49] LABS: HCG, SERUM QUALITATIVE NEGATIVE (NEGATIVE)
[2020-06-10 21:59] LABS: LIPASE 1504 U/L (73-393)
[2020-06-10] MEDS ORDERED: NS 1,000 ML IV SCH (22:06)
[2020-06-10] MEDS ORDERED: VENL150C43 PO (22:20)
[2020-06-10] MEDS ORDERED: VENL75CA47 PO (22:20)
[2020-06-10] MEDS ORDERED: ABIL1TAB13 PO (22:20)
[2020-06-10] MEDS ORDERED: VITA200020 PO (22:20)
[2020-06-10] MEDS ORDERED: RA M10TA PO (22:20)
[2020-06-10] MEDS ORDERED: ESTA0.25 PO (22:20)
[2020-06-10] MEDS: GASTROGRAFIN SOLUTION 30ML PO SCH ×2 (22:27→23:28)
--- NOTE | 2020-06-10 23:09 | REPVR ---
PROCEDURE INFORMATION: Exam: XR Chest Exam date and time: 06/10/2020 10:13 PM Age: 25 years old Clinical indication: Chest pain; Type not specified; Additional info: Chest pain HTN TECHNIQUE: Imaging protocol: XR of the chest Views: 1 view. COMPARISON: CR Abdomen,Flat Upright,PA CHEST 2016-11-17 01:44 FINDINGS: Lungs: Unremarkable. No consolidation. Pleural spaces: Unremarkable. No pleural effusion. No pneumothorax. Heart/Mediastinum: Unremarkable. No cardiomegaly. Bones/joints: Unremarkable. IMPRESSION: No acute findings. Electronically signed by: Gui Harding On 06/10/2020 23:09:24 PM
[2020-06-10 23:26] LABS: RSV AMPLIFICATION NEGATIVE (NEGATIVE)
[2020-06-11] MEDS ORDERED: ISOVUE-370 76% 100ML VIAL As Ordered ONE (00:16)
--- NOTE | 2020-06-11 00:19 | REPVR ---
PROCEDURE INFORMATION: Exam: CT Abdomen And Pelvis With Contrast Exam date and time: 06/10/2020 9:55 PM Age: 25 years old Clinical indication: Abdominal pain; Generalized; Additional info: Gen abd pain TECHNIQUE: Imaging protocol: Computed tomography of the abdomen and pelvis with contrast. Radiation optimization: All CT scans at this facility use at least one of these dose optimization techniques: automated exposure control; mA and/or kV adjustment per patient size (includes targeted exams where dose is matched to clinical indication); or iterative reconstruction. Contrast material: ISO; Contrast volume: 100 ml; Contrast route: INTRAVENOUS (IV); Other contrast: Oral, ggraphin, 600; COMPARISON: 1. US OBS SINGEL GEST 2019-01-09 15:27 2. Abdomen, limited US 2016-10-21 02:50 FINDINGS: Liver: Normal. No mass. Gallbladder and bile ducts: Normal. No calcified stones. No ductal dilation. Pancreas: Normal. No ductal dilation. Spleen: Normal. No splenomegaly. Adrenal glands: Normal. No mass. Kidneys and ureters: Normal. No hydronephrosis. Stomach and bowel: Excess stool in the colon. Appendix: No evidence of appendicitis. Intraperitoneal space: Unremarkable. No free air. No significant fluid collection. Vasculature: Unremarkable. No abdominal aortic aneurysm. Lymph nodes: Unremarkable. No enlarged lymph nodes. Urinary bladder: Unremarkable as visualized. Reproductive: Benign appearing 3 cm left ovarian incidental cyst. Bones/joints: Unremarkable. No acute fracture. Soft tissues: Unremarkable. IMPRESSION: No acute findings. Electronically signed by: Gui Harding On 06/11/2020 00:19:18 AM
[2020-06-11] MEDS ORDERED: ONDANSETRON 4MG/2ML VIAL IV PRN (01:25)
--- NOTE | 2020-06-11 01:29 | HPEPDOC ---
[facility] Medical History & Physical Date of Admission Jun 11, 2020 Date of Service: Jun 11, 2020 Primary Care Physician: Carlos Gill M.D. Attending Physician: AZIZA ZHENG MD History and Physical TIME OF SERVICE: 140am CHIEF COMPLAINT: abdominal pain HISTORY OF PRESENT ILLNESS: This 25 yr old F presented w c/o 12/29 in severity sharp/stabbing epigastric abdominal pain that is associated with nausea, chills & sweating. This is the 3rd or 4th episode over several months. REVIEW OF SYSTEMS: 12-point review of systems negative except as listed in HPI PAST MEDICAL/ SURGICAL HISTORY: Anxiety SOCIAL HISTORY: No tobacco, alcohol or drugs FAMILY HISTORY: HTN, CA, DM ALLERGIES: Please see below. HOME MEDICATIONS: Please see below. PHYSICAL EXAMINATION: Vital Signs Date Time Temp Pulse Resp B/P (MAP) Pulse Ox O2 Delivery O2 Flow Rate FiO2 06/10/20 19:45 97.2 97 20 165/91 (115) 100 Room Air GENERAL APPEARANCE: well nourished and developed HEENT: no scleral icterus CARDIOVASCULAR: RRR/NMRG LUNGS: CTAB ABDOMEN: flat / soft & NT MUSCULOSKELETAL: NCAT INTEGUMENT: no jaundice/ no medina-turners sign NEUROLOGICAL: CN 2-12 intact / speech not dysarthric PSYCHIATRIC: A&Ox3 LABORATORY DATA: 06/10/20 20:45 06/11/20 05:28 06/10/20 20:45: Immature Granulocyte % (Auto) 0.4, Neutrophils (%) (Auto) 79.1H, Lymphocytes (%) (Auto) 13.6L, Monocytes (%) (Auto) 5.9, Eosinophils (%) (Auto) 0.7, Basophils (%) (Auto) 0.3, Neutrophils # (Auto) 9.9H, Lymphocytes # (Auto) 1.7, Monocytes # (Auto) 0.7, Eosinophils # (Auto) 0.1, Basophils # (Auto) 0.0, Nucleated Red Blood Cells % (auto) 0.0, Anion Gap 5L, Glomerular Filtration Rate > 60.0, Calcium Level 8.9, Total Bilirubin 0.1L, Direct Bilirubin < 0.1, Aspartate Amino Transf (AST/SGOT) 10, Alanine Aminotransferase (ALT/SGPT) 15, Alkaline Phosphatase 112, Total Creatine Kinase 119, Creatine Kinase MB < 1.0, Creatine Kinase MB Relative Index 0.84, Troponin I < 0.02, Total Protein 7.3, Albumin 3.7, Albumin/Globulin Ratio 1.0L, Lipase 1504H, Human Chorionic Gonadotropin, Qual NEGATIVE IMAGING: Chest IMPRESSION: No acute findings. CT abd/pelvis IMPRESSION: No acute findings. MICROBIOLOGY: Coronavirus (COVID-19)(PCR) NEGATIVE, Influenza Type A (RT-PCR) NEGATIVE, Influenza Type B (RT-PCR) NEGATIVE, Respiratory Syncytial Virus (PCR) NEGATIVE ASSESSMENT: Ms. Whalen is a 25 yr old who presented w abdominal pain and was found to have an elevated lipase; she will be admitted for acute pancreatitis whos cause is TBD PLAN: 1 Acute pancreatitis Diagnosis made based on Modified [place] Criteria Possible causes include Ethanol, Hyperlipidemia, use estrogen or idiopathic She doesnt have SIRS Plan: admit to medical floor/ advance to CLD / IVF / f/u serum ETO, UDS, lipids / IV Toradol DVT px w SCDs Dispo: home after at least 2 midnights stay Home Medications Scheduled Aripiprazole (Abilify) 2 Mg Tablet, 2 MG PO DAILY Cholecalciferol (Vitamin D3) (Vitamin D3) 50 Mcg Capsule, 50 MCG PO DAILY Melatonin (Melatonin) 10 Mg Tablet, 10 MG PO QHS Norgestimate-Ethinyl Estradiol (Estarylla 0.25-0.035 mg Tablet) 1 Each Tablet, 1 TAB PO QHS Trazodone HCl (Trazodone HCl) 100 Mg Tablet, 100 MG PO QHS Venlafaxine HCl (Venlafaxine HCl ER) 75 Mg Cap.er.24h, 75 MG PO DAILY TAKES WITH 150MG FOR 225MG TOTAL Venlafaxine HCl (Venlafaxine HCl ER) 150 Mg Cap.er.24h, 150 MG PO DAILY TAKES WITH 75MG FOR 225MG TOTAL Scheduled PRN Alprazolam (Alprazolam) 0.25 Mg Tablet, 0.25 MG PO DAILY PRN for ANXIETY Allergies Coded Allergies: No Known Allergies (Unverified , 03/27/19) A-FIB/CHADSVASC A-FIB History Current/History of A-Fib/PAF?: No Current PO Anticoag Therapy: No AZIZA ZHENG MD Jun 11, 2020 01:29
[2020-06-11] MEDS: LR 1,000 ML IV SCH ×6 (02:04→21:54)
[2020-06-11 02:35] LABS: ETHYL ALCOHOL (ETHANOL) < 0.003 % (0.000-0.010); TRIGLYCERIDES LEVEL 153 MG/DL (<150)
[2020-06-11] MEDS: KETOROLAC 30 MG/ML 1ML VIAL IV PRN ×2 (02:42→09:03)
[2020-06-11] MEDS ORDERED: ALPRAZolam 0.25 MG TAB PO PRN (03:10)
[2020-06-11] MEDS: traZODone 100 MG TAB PO SCH ×2 (03:16→21:54)
[2020-06-11 06:00] VITALS: BP 125/84
[2020-06-11 06:00] LABS: HEMATOCRIT 38.3 % (36.0-47.0); HEMOGLOBIN 12.5 g/dl (12.0-15.5); MEAN CORPUSCULAR HEMOGLOBIN 28.7 pg (27.0-33.0); MEAN CORPUSCULAR HGB CONC 32.6 g/dl (32.0-36.5); MEAN CORPUSCULAR VOLUME 87.8 fl (80.0-96.0); PLATELET COUNT, AUTOMATED 169 10^3/uL (150-450); RED BLOOD COUNT 4.36 10^6/uL (4.00-5.40)
[2020-06-11 06:29] LABS: BLOOD UREA NITROGEN 6 MG/DL (7-18); CALCIUM LEVEL 8.4 MG/DL (8.5-10.1); CARBON DIOXIDE LEVEL 27 MEQ/L (21-32); CHLORIDE LEVEL 108 MEQ/L (98-107); CREATININE FOR GFR 0.74 MG/DL (0.55-1.30); GLOMERULAR FILTRATION RATE > 60.0 (>60); GLUCOSE, FASTING 89 MG/DL (70-100); POTASSIUM SERUM 3.9 MEQ/L (3.5-5.1); SODIUM LEVEL 140 MEQ/L (136-145)
[2020-06-11] MEDS ORDERED: E-Z-GAS II EFFERVESCENT PACKET (SODIUM BICARB./CITRIC ACID/SIMETHICONE) As Ordered ONE (08:25)
[2020-06-11] MEDS ORDERED: E-Z-PAQUE 96% w/w SUSP 176GM BTL As Ordered ONE (08:25)
[2020-06-11] MEDS ORDERED: E-Z-HD 98% w/w 340GM SUSP BTL As Ordered ONE (08:25)
[2020-06-11] MEDS ORDERED: ENOXAPARIN 40MG/0.4ML SYRINGE (J1650 PER 10MG) SC SCH (09:00)
[2020-06-11] MEDS: VENLAFAXINE **XR** 75MG CAPSULE PO SCH ×2 (09:02)
[2020-06-11] MEDS: ARIPiprazole 2 MG TAB PO SCH (09:02)
--- NOTE | 2020-06-11 09:23 | REP ---
INDICATION: gastric or duodenal ulcer. COMPARISON: Abdomen/pelvis CT dated 06/11/2020. TECHNIQUE: Single supine AP view of the abdomen. FINDINGS: There is intraluminal bowel contrast in the ascending colon and transverse colon likely administered for the CT exam earlier today. There is no bowel distention or obstruction. There are 2 tiny calcifications in the pelvis on the right, likely phleboliths There are no other calcifications. Skeletal structures and soft tissues are otherwise unremarkable. IMPRESSION: Essentially negative supine abdomen. Intraluminal bowel contrast is incidentally identified as discussed. <Electronically signed by Ming Win > 06/11/20 0919
[2020-06-11] MEDS: PANTOPRAZOLE 40MG VIAL (C9113 PER 1) IV SCH ×2 (10:01→21:54)
--- NOTE | 2020-06-11 10:39 | IPNPDOC ---
Subjective Date Seen The patient was seen on 06/11/20. Objective Physical Examination General Exam: Positive: Alert, Cooperative, No Acute Distress Eye Exam: Positive: PERRLA, Conjunctiva & lids normal, EOMI; Negative: Sclera icteric ENT Exam: Positive: Atraumatic, Mucous membr. moist/pink, Pharynx Normal Neck Exam: Positive: Supple; Negative: JVD, thyromegaly Chest Exam: Positive: Clear to auscultation, Normal air movement Heart Exam: Positive: Rate Normal, Regular Rhythm, Normal S1, Normal S2; Negative: Murmurs, Rubs Abdomen Exam: Positive: Normal bowel sounds, Soft, Tenderness (inthe epigastrium, right upper quadrant and right periumbilical area.); Negative: Hepatospenomegaly Assessment /Plan Assessment This is a 25 yr old who presented w abdominal pain and was found to have an elevated lipase; she was admitted for possible acute pancreatitis. CT abd and pelvis was negative for any pancreatitis. Elevated lipase I do not think patient has acute pancreatitis. No changes in CT scan, no SIRs I think she possibly has gastritis or duodenitis which could also elevate the lipase will start on PPI and sucralfate. CHRONIC MDD/PD C AGORAPHOBIA/SECONDARY INSOMNIA continue home meds B12 DEFICIENCY resolved. VWD, MILD no bleeding issues. VS, I&O, 24H, Fishbone Vital Signs/I&O Vital Signs Date Time Temp Pulse Resp B/P (MAP) Pulse Ox O2 Delivery O2 Flow Rate FiO2 06/11/20 06:00 98.2 78 20 125/84 (98) 99 Room Air I&O- Last 24 Hours up to 6 AM 06/11/20 06:00 Intake Total 1000 ml Output Total 0 ml Balance 1000 ml Laboratory Data 24H LABS Laboratory Tests 2 06/10/20 20:45: Immature Granulocyte % (Auto) 0.4, Neutrophils (%) (Auto) 79.1H, Lymphocytes (%) (Auto) 13.6L, Monocytes (%) (Auto) 5.9, Eosinophils (%) (Auto) 0.7, Basophils (%) (Auto) 0.3, Neutrophils # (Auto) 9.9H, Lymphocytes # (Auto) 1.7, Monocytes # (Auto) 0.7, Eosinophils # (Auto) 0.1, Basophils # (Auto) 0.0, Nucleated Red Blood Cells % (auto) 0.0, Anion Gap 5L, Glomerular Filtration Rate > 60.0, C alcium Level 8.9, Total Bilirubin 0.1L, Direct Bilirubin < 0.1, Aspartate Amino Transf (AST/SGOT) 10, Alanine Aminotransferase (ALT/SGPT) 15, Alkaline Phosphatase 112, Total Creatine Kinase 119, Creatine Kinase MB < 1.0, Creatine Kinase MB Relative Index 0.84, Troponin I < 0.02, Total Protein 7.3, Albumin 3.7, Albumin/Globulin Ratio 1.0L, Triglycerides Level 153H, Lipase 1504H, Human Chorionic Gonadotropin, Qual NEGATIVE, Ethyl Alcohol Level < 0.003 06/10/20 22:29: Coronavirus (COVID-19)(PCR) NEGATIVE, Influenza Type A (RT-PCR) NEGATIVE, Influenza Type B (RT-PCR) NEGATIVE, Respiratory Syncytial Virus (PCR) NEGATIVE 06/11/20 05:28: Nucleated Red Blood Cells % (auto) 0.0, Anion Gap 5L, Glomerular Filtration Rate > 60.0, Calcium Level 8.4L CBC/BMP Laboratory Tests 06/10/20 20:45 06/11/20 05:28 BOYD BROWNLEE MD Jun 11, 2020 10:39
[2020-06-11] MEDS: SUCRALFATE SUSP 1GM/10ML UD PO SCH ×2 (12:14→18:16)
[2020-06-11 14:00] VITALS: BP 125/75
--- NOTE | 2020-06-11 20:36 | ECGEPIP ---
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
[2020-06-11 22:00] VITALS: BP 142/86
[2020-06-12] MEDS: SUCRALFATE SUSP 1GM/10ML UD PO SCH ×2 (00:18→06:09)
[2020-06-12] MEDS: LR 1,000 ML IV SCH ×2 (02:05→06:09)
[2020-06-12 06:00] VITALS: BP 109/71
[2020-06-12 06:45] LABS: HEMATOCRIT 37.5 % (36.0-47.0); MEAN CORPUSCULAR HEMOGLOBIN 28.6 pg (27.0-33.0); MEAN CORPUSCULAR VOLUME 89.3 fl (80.0-96.0); PLATELET COUNT, AUTOMATED 151 10^3/uL (150-450); WHITE BLOOD COUNT 5.3 10^3/uL (4.0-10.0)
[2020-06-12 07:10] LABS: BLOOD UREA NITROGEN 5 MG/DL (7-18); CALCIUM LEVEL 8.6 MG/DL (8.5-10.1); CARBON DIOXIDE LEVEL 29 MEQ/L (21-32); CHLORIDE LEVEL 108 MEQ/L (98-107); CREATININE FOR GFR 0.68 MG/DL (0.55-1.30); GLOMERULAR FILTRATION RATE > 60.0 (>60); GLUCOSE, FASTING 86 MG/DL (70-100); POTASSIUM SERUM 4.1 MEQ/L (3.5-5.1); SODIUM LEVEL 141 MEQ/L (136-145)
[2020-06-12 07:43] LABS: LIPASE 98 U/L (73-393)
[2020-06-12] MEDS: VENLAFAXINE **XR** 75MG CAPSULE PO SCH ×2 (07:58)
[2020-06-12] MEDS: ARIPiprazole 2 MG TAB PO SCH (07:59)
[2020-06-12] MEDS: PANTOPRAZOLE 40MG VIAL (C9113 PER 1) IV SCH (07:59)
[2020-06-12] MEDS ORDERED: PANT40TA29 PO (10:11)
[2020-06-12] MEDS ORDERED: SUCR1TA PO (10:11)
--- NOTE | 2020-06-12 16:56 | DS.PDOC ---
Discharge Summary General Date of Admission Jun 11, 2020 at 01:25 Date of Discharge 06/12/20 Discharge Summary PROCEDURES PERFORMED DURING STAY: [None]. DISCHARGE DIAGNOSES: Acute gastritis/ duodenitis SECONDARY DIAGNOSIS: CHRONIC MDD/PD C AGORAPHOBIA/SECONDARY INSOMNIA B12 DEFICIENCY VWD, MILD COMPLICATIONS/CHIEF COMPLAINT: Acute Pancreatitis. HOSPITAL COURSE: This is a 25 yr old who presented w abdominal pain and was found to have an elevated lipase; she was admitted for possible acute pancreatit is. CT abd and pelvis was negative for any pancreatitis. It was felt that she had acute gastritis / duodenitis. Acute gastritis or duodenitis which could also mildly elevate the lipase started on PPI and sucralfate. CHRONIC MDD/PD C AGORAPHOBIA/SECONDARY INSOMNIA continue home meds B12 DEFICIENCY resolved. VWD, MILD no bleeding issues. DISCHARGE MEDICATIONS: Please see below. ALLERGIES: Please see below. PHYSICAL EXAMINATION ON DISCHARGE: VITAL SIGNS: Please see below. General Exam: Positive: Alert, Cooperative, No Acute Distress Eye Exam: Positive: PERRLA, Conjunctiva & lids normal, EOMI; Negative: Sclera icteric ENT Exam: Positive: Atraumatic, Mucous membr. moist/pink, Pharynx Normal Neck Exam: Positive: Supple; Negative: JVD, thyromegaly Chest Exam: Positive: Clear to auscultation, Normal air movement Heart Exam: Positive: Rate Normal, Regular Rhythm, Normal S1, Normal S2; Negative: Murmurs, Rubs Abdomen Exam: Positive: Normal bowel sounds, Soft, Tenderness (inthe epigastrium, right upper quadrant and right periumbilical area.); Negative: Hepatosplenomegaly LABORATORY DATA: Please see below. ACTIVITY: [As tolerated]. DIET: As tolerated DISPOSITION: Home, Self-Care. DISCHARGE INSTRUCTIONS: PMD in 2 weeks DISCHARGE CONDITION: [Stable]. TIME SPENT ON DISCHARGE: 32 minutes. Vital Signs/I&Os Vital Signs Date Time Temp Pulse Resp B/P (MAP) Pulse Ox O2 Delivery O2 Flow Rate FiO2 06/12/20 06:00 97.8 80 21 109/71 (84) 98 Room Air I&O- Last 24 Hours up to 6 AM 06/12/20 07:00 Intake Total 4470 ml Balance 4470 ml Laboratory Data Labs 24H Laboratory Tests 2 06/12/20 06:29: Nucleated Red Blood Cells % (auto) 0.0, Anion Gap 4L, Glomerular Filtration Rate > 60.0, Calcium Level 8.6, Lipase 98 CBC/BMP Laboratory Tests 06/12/20 06:29 Discharge Medications Scheduled Aripiprazole (Abilify) 2 Mg Tablet, 2 MG PO DAILY, (Reported) Cholecalciferol (Vitamin D3) (Vitamin D3) 50 Mcg Capsule, 50 MCG PO DAILY, (R eported) Melatonin (Melatonin) 10 Mg Tablet, 10 MG PO QHS, (Reported) Norgestimate-Ethinyl Estradiol (Estarylla 0.25-0.035 mg Tablet) 1 Each Tablet, 1 TAB PO QHS, (Reported) Pantoprazole Sodium (Pantoprazole Sodium) 40 Mg Tablet.dr, 40 MG PO QHS Sucralfate (Sucralfate) 1 Gm Tablet, 1 GM PO AC Trazodone HCl (Trazodone HCl) 100 Mg Tablet, 100 MG PO QHS, (Reported) Venlafaxine HCl (Venlafaxine HCl ER) 75 Mg Cap.er.24h, 75 MG PO DAILY, (Reported) TAKES WITH 150MG FOR 225MG TOTAL Venlafaxine HCl (Venlafaxine HCl ER) 150 Mg Cap.er.24h, 150 MG PO DAILY, (Reported) TAKES WITH 75MG FOR 225MG TOTAL Scheduled PRN Alprazolam (Alprazolam) 0.25 Mg Tablet, 0.25 MG PO DAILY PRN for ANXIETY, (Reported) Allergies Coded Allergies: No Known Allergies (Unverified , 03/27/19) BOYD BROWNLEE MD Jun 12, 2020 16:56
== END 2020-06-12 12:03 | disposition home or self-care (01) | DRG 241 ==
LOC: M ED 19:31 → M ED INP 06-11 01:25 → ENRESERV 06-11 01:53 → M MS5PR 06-11 02:29
PROVIDERS: ADMIT Internal Medicine; ATTEND Internal Medicine Nephrology
DX: K29.70 Gastritis, unspecified, without bleeding (principal); E53.8 Deficiency of other specified B group vitamins; F32.9 Major depressive disorder, single episode, unspecified; K29.80 Duodenitis without bleeding; F40.00 Agoraphobia, unspecified; G47.00 Insomnia, unspecified; Z79.899 Other long term (current) drug therapy

== ENCOUNTER 2020-07-26 14:44 | Emergency (ER) | payer OTHER ==
[~2020-07-26] VITALS: Ht 177.8 cm; Wt 86.7 kg
[~2020-07-26 14:44] MED LIST changes: +ABIL1TAB13 PO; +ALPR0.25 PO; +ARIP1TAB4 PO; +ESTA0.25 PO; +NOXI1TAB PO; +PANT40TA29 PO; +RA M10TA PO; +SUCR1TA PO; +TRAZ-257 PO; +VENL150C43 PO; +VENL75CA47 PO; +VENL75TA2 PO; +VITA200020 PO
[2020-07-26 16:27] LABS: BASO % 0.4 % (0.0-1.0); EOS % 0.5 % (0.0-3.0); HEMOGLOBIN 12.7 g/dl (12.0-15.5); LYMPH # 1.5 10^3/uL (1.5-5.0); LYMPH % 18.5 % (24.0-44.0); MEAN CORPUSCULAR HEMOGLOBIN 28.3 pg (27.0-33.0); MEAN CORPUSCULAR HGB CONC 31.8 g/dl (32.0-36.5); MEAN CORPUSCULAR VOLUME 89.1 fl (80.0-96.0); MONO # 0.4 10^3/uL (0.0-0.8); MONO % 5.3 % (2.0-8.0); NEUTROPHILS # 6.1 10^3/uL (1.5-8.5); NEUTROPHILS % 75.1 % (36.0-66.0); PLATELET COUNT, AUTOMATED 194 10^3/uL (150-450); RED BLOOD COUNT 4.49 10^6/uL (4.00-5.40); WHITE BLOOD COUNT 8.2 10^3/uL (4.0-10.0)
[2020-07-26 16:49] LABS: HCG, SERUM QUALITATIVE NEGATIVE (NEGATIVE)
[2020-07-26 16:55] LABS: BLOOD UREA NITROGEN 15 MG/DL (7-18); CARBON DIOXIDE LEVEL 29 MEQ/L (21-32); CHLORIDE LEVEL 106 MEQ/L (98-107); CREATININE FOR GFR 0.74 MG/DL (0.55-1.30); GLOMERULAR FILTRATION RATE > 60.0 (>60); GLUCOSE, FASTING 118 MG/DL (70-100); POTASSIUM SERUM 3.7 MEQ/L (3.5-5.1); SODIUM LEVEL 138 MEQ/L (136-145)
[2020-07-26 16:56] LABS: ALBUMIN 3.3 GM/DL (3.2-5.2); ALT/SGPT 30 U/L (12-78); BILIRUBIN,TOTAL 0.2 MG/DL (0.2-1.0); CALCIUM LEVEL 9.4 MG/DL (8.5-10.1); FREE THYROXINE INDEX 3.5 % (1.3-4.8); LIPASE 96 U/L (73-393); T UPTAKE 28 % (30-39); THYROID STIMULATING HORMONE 0.926 uIU/ML (0.358-3.740); THYROXINE (T4) 12.6 UG/DL (4.5-12.0); TOTAL PROTEIN 6.6 GM/DL (6.4-8.2)
[2020-07-26] MEDS ORDERED: GI COCKTAIL 50ML BTL(HYOSCYAMINE/MAALOX/LIDOCAINE VISCOUS)(1:3:1) PO ONE (17:40)
[2020-07-26 18:55] VITALS: BP 127/77
--- NOTE | 2020-07-26 19:20 | ECGEPIP ---
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
== END 2020-07-26 18:57 | disposition home or self-care (01) ==
LOC: M ED 14:44
DX: R00.2 Palpitations (principal); K29.00 Acute gastritis without bleeding; Z79.899 Other long term (current) drug therapy

== ENCOUNTER → 2020-08-01 | Outpatient (REF) | payer OTHER ==
[2020-08-01 16:04] LABS: ALBUMIN 3.7 GM/DL (3.2-5.2); ALT/SGPT 26 U/L (12-78); BILIRUBIN,DIRECT < 0.1 MG/DL (0.0-0.2); BILIRUBIN,TOTAL 0.2 MG/DL (0.2-1.0); C REACTIVE PROTEIN QUANTITATIV 1.66 MG/DL (0.00-0.30); CHOLESTEROL LEVEL 295 MG/DL (<200); CHOLESTEROL RISK RATIO 3.041 (<5); HDL CHOLESTEROL 97 MG/DL (>40); LDL CHOLESTEROL 163 MG/DL (<100); LIPASE 133 U/L (73-393); NON-HDL-C 198 MG/DL; TOTAL PROTEIN 7.2 GM/DL (6.4-8.2); TRIGLYCERIDES LEVEL 175 MG/DL (<150)
[2020-08-03 12:08] LABS: H PYLORI SERUM QUANT IgG ABY 0.14 (0.00-0.79); TISSUE TRANSGLUTAMINASE IgA <2 U/mL (0-3)
== END ==
LOC: M SFHCPLAZ 12:12
PROVIDERS: ATTEND Family Medicine
DX: R10.13 Epigastric pain (principal); E78.2 Mixed hyperlipidemia

== ENCOUNTER → 2020-08-21 | Outpatient (CLI) | payer OTHER ==
--- NOTE | 2020-08-21 09:38 | REP ---
INDICATION: EPIGASTRIC PAIN COMPARISON: None. TECHNIQUE: Real time johnson scale ultrasound examination using curved array transducer. FINDINGS: Liver is normal in contour, size, and echogenicity without focal hepatic lesions identified. Pancreas is incompletely evaluated due to interposed bowel gas. The gallbladder is normal and without gallstones, wall thickening, or pericholecystic fluid. No biliary ductal dilatation is appreciated and the common bile duct measures 4.0 mm diameter. Right kidney is normal in reniform shape without hydronephrosis and measures 11.3 x 5.2 x 4.1 cm. No ascites in the visualized right upper quadrant. IMPRESSION: Normal limited right upper quadrant ultrasound <Electronically signed by Geovany Ralph > 08/21/20 [id number]
== END ==
LOC: M RAD 08:35
PROVIDERS: ATTEND Family Medicine
DX: R10.13 Epigastric pain (principal)

== ENCOUNTER 2020-11-02 05:54 | Emergency (ER) | payer OTHER ==
[~2020-11-02] VITALS: Ht 177.8 cm; Wt 91.9 kg
[2020-11-02 08:40] VITALS: BP 138/74
--- NOTE | 2020-11-02 08:49 | REP ---
INDICATION: pain and swelling. COMPARISON: None. TECHNIQUE: Duplex FINDINGS: There is no evidence of deep venous thrombosis above or below the knee IMPRESSION: Negative venous duplex examination left lower extremity. <Electronically signed by Delonte Aparicio > 11/02/20 0880
== END 2020-11-02 08:46 | disposition home or self-care (01) ==
LOC: M ED 05:54
DX: M79.662 Pain in left lower leg (principal); M79.672 Pain in left foot; G43.909 Migraine, unspecified, not intractable, without status migrainosus; Z79.899 Other long term (current) drug therapy

== ENCOUNTER → 2020-11-05 | Outpatient (CLI) | payer OTHER ==
--- NOTE | 2020-11-05 14:26 | REP ---
INDICATION: M79.672 PAIN IN LEFT FOOT. COMPARISON: None. TECHNIQUE: Four views FINDINGS: The joint spaces are symmetric and relatively well maintained. There is no evidence of acute fracture or destructive osseous lesion. There is a tiny plantar calcaneal heel spur. IMPRESSION: No acute abnormality <Electronically signed by José Miguel Oh > 11/05/20 [id number]
== END ==
LOC: M WUC 11:52
PROVIDERS: ATTEND Physician Assistant
DX: M79.672 Pain in left foot (principal)

== ENCOUNTER → 2021-02-06 | Outpatient (REF) | payer OTHER | LOC: M LAB REF 10:02 | PROVIDERS: ATTEND Physician Assistant | DX: R05.9 Cough, unspecified (principal) ==

== ENCOUNTER → 2021-03-03 | Outpatient (CLI) | payer OTHER ==
[2021-03-03 20:10] LABS: HEMATOCRIT 35.3 % (36.0-47.0); HEMOGLOBIN 11.2 g/dl (12.0-15.5); MEAN CORPUSCULAR HGB CONC 31.7 g/dl (32.0-36.5); MEAN CORPUSCULAR VOLUME 88.3 fl (80.0-96.0); PLATELET COUNT, AUTOMATED 150 10^3/uL (150-450); WHITE BLOOD COUNT 6.6 10^3/uL (4.0-10.0)
[2021-03-03 21:11] LABS: HEPATITIS C VIRUS ABY INDEX 0.1 INDEX (<0.8); HIV 1&2 SCREEN CENTAUR NEGATIVE (NEGATIVE)
[2021-03-03 23:35] LABS: GC DNA AMPLIFICATION NEGATIVE (NEGATIVE)
== END ==
LOC: M WUC 15:15
PROVIDERS: ATTEND Specialist
DX: Z34.81 Encounter for supervision of other normal pregnancy, first trimester (principal)

== ENCOUNTER 2021-05-09 11:19 | Emergency (ER) | payer OTHER ==
[~2021-05-09] VITALS: Ht 177.8 cm; Wt 90.2 kg
[2021-05-09 11:58] LABS: BASO % 0.4 % (0.0-1.0); EOS # 0.1 10^3/uL (0.0-0.5); EOS % 1.3 % (0.0-3.0); HEMATOCRIT 33.2 % (36.0-47.0); HEMOGLOBIN 10.8 g/dl (12.0-15.5); LYMPH # 1.6 10^3/uL (1.5-5.0); LYMPH % 18.8 % (24.0-44.0); MEAN CORPUSCULAR HEMOGLOBIN 28.8 pg (27.0-33.0); MEAN CORPUSCULAR HGB CONC 32.5 g/dl (32.0-36.5); MEAN CORPUSCULAR VOLUME 88.5 fl (80.0-96.0); MONO # 0.7 10^3/uL (0.0-0.8); NEUTROPHILS # 5.9 10^3/uL (1.5-8.5); NEUTROPHILS % 70.8 % (36.0-66.0); PLATELET COUNT, AUTOMATED 152 10^3/uL (150-450); RED BLOOD COUNT 3.75 10^6/uL (4.00-5.40); WHITE BLOOD COUNT 8.3 10^3/uL (4.0-10.0)
[2021-05-09 12:20] LABS: CK-MB VALUE MASS < 1.0 NG/ML (<3.6); CPK CREATINE PHOSPHOKINASE 56 U/L (26-192); MB/CK RELATIVE INDEX 1.79 (< OR =4)
[2021-05-09 12:27] LABS: BLOOD UREA NITROGEN 6 MG/DL (7-18); CALCIUM LEVEL 8.5 MG/DL (8.5-10.1); CARBON DIOXIDE LEVEL 23 MEQ/L (21-32); CHLORIDE LEVEL 109 MEQ/L (98-107); GLOMERULAR FILTRATION RATE > 60.0 (>60); GLUCOSE, FASTING 91 MG/DL (70-100); MAGNESIUM LEVEL 1.7 MG/DL (1.8-2.4); POTASSIUM SERUM 3.6 MEQ/L (3.5-5.1); SODIUM LEVEL 140 MEQ/L (136-145)
[2021-05-09] MEDS ORDERED: PROM25TA12 PO (14:20)
[2021-05-09 16:58] VITALS: BP 121/64
== END 2021-05-09 16:58 | disposition home or self-care (01) ==
LOC: M ED 11:19
DX: O99.43 Diseases of the circulatory system complicating the puerperium (principal); R00.2 Palpitations; F41.8 Other specified anxiety disorders; Z3A.20 20 weeks gestation of pregnancy

== ENCOUNTER → 2021-05-27 | Outpatient (CLI) | payer OTHER ==
[~2021-05-27] MED LIST changes: +PROM25TA12 PO
== END ==
LOC: M RAD 13:15
PROVIDERS: ATTEND Specialist
DX: Z34.82 Encounter for supervision of other normal pregnancy, second trimester (principal)

== ENCOUNTER → 2021-06-26 | Outpatient (CLI) | payer OTHER | LOC: M WHC 09:54 | PROVIDERS: ATTEND Specialist | DX: Z34.82 Encounter for supervision of other normal pregnancy, second trimester (principal); Z3A.27 27 weeks gestation of pregnancy ==

== ENCOUNTER → 2021-06-30 | Outpatient (CLI) | payer OTHER ==
[2021-06-30 11:40] LABS: HEMATOCRIT 34.2 % (36.0-47.0); HEMOGLOBIN 11.1 g/dl (12.0-15.5); MEAN CORPUSCULAR HEMOGLOBIN 28.7 pg (27.0-33.0); MEAN CORPUSCULAR HGB CONC 32.5 g/dl (32.0-36.5); MEAN CORPUSCULAR VOLUME 88.4 fl (80.0-96.0); PLATELET COUNT, AUTOMATED 191 10^3/uL (150-450); RED BLOOD COUNT 3.87 10^6/uL (4.00-5.40); WHITE BLOOD COUNT 10.3 10^3/uL (4.0-10.0)
[2021-06-30 13:24] LABS: GC DNA AMPLIFICATION NEGATIVE (NEGATIVE)
== END ==
LOC: M LAB 09:23
PROVIDERS: ATTEND Specialist
DX: Z36.89 Encounter for other specified antenatal screening (principal)

== ENCOUNTER → 2021-07-04 | Outpatient (CLI) | payer OTHER | LOC: M PLALAB 11:49 | PROVIDERS: ATTEND Advanced Practice Midwife | DX: O28.3 Abnormal ultrasonic finding on antenatal screening of mother (principal) ==

== ENCOUNTER → 2021-07-10 | Outpatient (CLI) | payer OTHER | LOC: M LAB 08:11 | PROVIDERS: ATTEND Advanced Practice Midwife | DX: O99.810 Abnormal glucose complicating pregnancy (principal); O28.3 Abnormal ultrasonic finding on antenatal screening of mother ==

== ENCOUNTER 2021-07-13 23:02 | Outpatient (CLI) | payer OTHER ==
[~2021-07-13] VITALS: Ht 177.8 cm; Wt 93.6 kg
[2021-07-13 23:11] VITALS: BP 129/83
== END 2021-07-14 00:03 | disposition home or self-care (01) ==
LOC: M LDO 23:02
PROVIDERS: ATTEND Specialist
DX: O26.893 Other specified pregnancy related conditions, third trimester (principal); R10.30 Lower abdominal pain, unspecified; Z3A.29 29 weeks gestation of pregnancy

== ENCOUNTER → 2021-08-27 | Outpatient (REF) | payer OTHER | LOC: M SFHCWAGY 12:48 | PROVIDERS: ATTEND Specialist | DX: Z36.85 Encounter for antenatal screening for Streptococcus B (principal) ==

== ENCOUNTER 2021-09-05 14:06 | Outpatient (CLI) | payer OTHER ==
[~2021-09-05] VITALS: Ht 177.8 cm; Wt 100.9 kg
[2021-09-05 14:24] VITALS: BP 135/80
[2021-09-05] MEDS ORDERED: HOME MED LIST COMPLETE! XX SCH (14:45)
== END 2021-09-05 15:00 | disposition home or self-care (01) ==
LOC: M LDO 14:06
PROVIDERS: ATTEND Specialist
DX: O26.893 Other specified pregnancy related conditions, third trimester (principal); R10.30 Lower abdominal pain, unspecified; Z3A.37 37 weeks gestation of pregnancy

== ENCOUNTER 2021-09-11 12:28 | Inpatient (IN) | payer OTHER ==
[~2021-09-11] VITALS: Ht 177.8 cm; Wt 100.2 kg
[2021-09-11] VITALS (17 sets, daily range): BP systolic 108–143; BP diastolic 56–82
[2021-09-11] MEDS ORDERED: OXYTOCIN DRIP 30 UNITS in IV 1 EA IV SCH (18:20)
[2021-09-11 18:53] LABS: HEMATOCRIT 33.2 % (36.0-47.0); HEMOGLOBIN 10.6 g/dl (12.0-15.5); MEAN CORPUSCULAR HEMOGLOBIN 27.6 pg (27.0-33.0); MEAN CORPUSCULAR HGB CONC 31.9 g/dl (32.0-36.5); MEAN CORPUSCULAR VOLUME 86.5 fl (80.0-96.0); PLATELET COUNT, AUTOMATED 130 10^3/uL (150-450); RED BLOOD COUNT 3.84 10^6/uL (4.00-5.40); WHITE BLOOD COUNT 10.6 10^3/uL (4.0-10.0)
[2021-09-11] MEDS: LR 1,000 ML IV SCH (19:37)
[2021-09-11] MEDS ORDERED: LIDOCAINE 1% MDV 20ML VIAL As Ordered ONE (23:29)
[2021-09-11] MEDS ORDERED: DIBUCAINE 1% OINTMENT 30GM TOP PRN (23:50)
[2021-09-11] MEDS ORDERED: IBUPROFEN 600MG TAB PO PRN (23:50)
[2021-09-11] MEDS ORDERED: IBUPROFEN 800 MG TAB PO PRN (23:50)
[2021-09-11] MEDS ORDERED: RHOGAM 300 MCG (1500 IU) INJ (J2790) IM SCH (23:50)
[2021-09-11] MEDS ORDERED: METHYLERGONOVINE MALEATE 0.2 MG TAB PO PRN (23:50)
[2021-09-11] MEDS ORDERED: LIDOCAINE 1% MDV 20ML VIAL INFIL ONE (23:50)
[2021-09-11] MEDS ORDERED: ACETAMINOPHEN TAB 650MG DOSE (2X325MG) PO PRN (23:50)
[2021-09-11] MEDS ORDERED: OXYTOCIN DRIP 30 UNITS in IV 1 EA IV ONE (23:50)
[2021-09-11] MEDS ORDERED: DOCUSATE SODIUM 100MG CAPSULE PO PRN (23:50)
[2021-09-12 00:13] VITALS: BP 129/67
[2021-09-12 00:34] VITALS: BP 142/76
[2021-09-12 01:25] VITALS: BP 125/74
[2021-09-12] MEDS: LR 1,000 ML IV SCH (02:20)
[2021-09-12 06:00] VITALS: BP 127/64
[2021-09-12] MEDS: PRENATAL VITAMINS CHEWABLE TABLET PO SCH (07:38)
[2021-09-12] MEDS: ACETAMINOPHEN 500 MG TAB PO PRN ×2 (07:38→14:34)
[2021-09-12 18:00] VITALS: BP 126/75
[2021-09-13 06:00] VITALS: BP 109/55
[2021-09-13] MEDS ORDERED: MEASLES,MUMPS,RUBELLA VACCINE INJ (MMR-II) (90707) SC.IMMUN ONE (09:00)
[2021-09-13] MEDS: PRENATAL VITAMINS CHEWABLE TABLET PO SCH (09:27)
[2021-11-12] MEDS ORDERED: VENL150C43 PO (07:42)
== END 2021-09-13 12:27 | disposition home or self-care (01) | DRG 560 ==
LOC: M LDO 12:28 → M LDI 18:12 → M OBS 09-12 01:20
PROVIDERS: ADMIT Specialist; ATTEND Specialist
PROC: 10E0XZZ Delivery of Products of Conception, External Approach (ICD-10-PCS; principal; 2021-09-11)
PROC: 0HQ9XZZ Repair Perineum Skin, External Approach (ICD-10-PCS; 2021-09-11)
PROC: 10907ZC Drainage of Amniotic Fluid, Therapeutic from Products of Conception, Via Natural or Artificial Opening (ICD-10-PCS; 2021-09-11)
DX: O70.0 First degree perineal laceration during delivery (principal); Z37.0 Single live birth; Z3A.38 38 weeks gestation of pregnancy

== ENCOUNTER → 2021-11-23 | Outpatient (CLI) | payer OTHER | LOC: M LABSMTC 09:53 | PROVIDERS: ATTEND Anesthesiology | DX: Z01.812 Encounter for preprocedural laboratory examination (principal); Z20.822 Contact with and (suspected) exposure to COVID-19 ==

== ENCOUNTER 2021-11-26 05:59 | Day surgery (SDC) | payer OTHER ==
[~2021-11-26] VITALS: Ht 177.8 cm; Wt 85.0 kg
[2021-11-26] MEDS ORDERED: LR 1,000 ML IV SCH ×2 (06:35→08:30)
[2021-11-26 06:39] LABS: HEMATOCRIT 39.5 % (36.0-47.0); HEMOGLOBIN 12.8 g/dl (12.0-15.5); MEAN CORPUSCULAR HEMOGLOBIN 27.5 pg (27.0-33.0); MEAN CORPUSCULAR HGB CONC 32.4 g/dl (32.0-36.5); MEAN CORPUSCULAR VOLUME 84.8 fl (80.0-96.0); PLATELET COUNT, AUTOMATED 169 10^3/uL (150-450); RED BLOOD COUNT 4.66 10^6/uL (4.00-5.40); WHITE BLOOD COUNT 5.5 10^3/uL (4.0-10.0)
[2021-11-26] MEDS ORDERED: propofoL 200 MG/20 ML VIAL As Ordered ONE ×2 (07:20→08:28)
[2021-11-26] MEDS ORDERED: ROCURONIUM BROMIDE 50 MG/5 ML VIAL As Ordered ONE (07:20)
[2021-11-26] MEDS ORDERED: LIDOCAINE 2% 100MG/5ML SDV (FOR ANES.) As Ordered ONE (07:20)
[2021-11-26] MEDS ORDERED: MIDAZOLAM INJ 2MG/2ML VIAL (J2250 PER 1MG) As Ordered ONE (07:21)
[2021-11-26] MEDS ORDERED: ONDANSETRON 4MG 2ML VIAL As Ordered ONE (07:21)
[2021-11-26] MEDS ORDERED: dexameTHASONE 4 MG/ML 1ML VIAL (J1100 PER 1MG) As Ordered ONE (07:21)
[2021-11-26] MEDS ORDERED: fentaNYL 100 MCG/2 ML INJECTION As Ordered ONE ×2 (07:21→08:04)
[2021-11-26] MEDS ORDERED: BUPIVACAINE HCL 0.25% 30ML VIAL As Ordered ONE (07:21)
[2021-11-26] MEDS ORDERED: SUGAMMADEX SODIUM 500 MG/5 ML VIAL (BRIDION) As Ordered ONE (08:22)
[2021-11-26] MEDS ORDERED: KETOROLAC 60MG 2ML VIAL As Ordered ONE (08:22)
[2021-11-26] MEDS ORDERED: ACETAMINOPHEN 1000MG 100ML IV BTL (OFIRMEV) (J0131 PER 10MG) As Ordered ONE (08:23)
[2021-11-26] MEDS ORDERED: ONDANSETRON 4MG 2ML VIAL IV PRN (08:30)
[2021-11-26] MEDS ORDERED: oxyCODONE 5MG TAB PO PRN (08:30)
[2021-11-26] MEDS ORDERED: fentaNYL 100 MCG/2 ML INJECTION IV PRN (08:30)
[2021-11-26] MEDS ORDERED: MORPHINE 2 MG/ML 1ML VIAL IV PRN (08:30)
[2021-11-26] MEDS ORDERED: METOCLOPRAMIDE INJ 10MG/2ML VIAL (J2765 PER 1) As Ordered ONE (08:39)
[2021-11-26] MEDS ORDERED: PERCOCET 5MG/325MG TAB PO PRN (08:55)
[2021-11-26 10:05] VITALS: BP 121/76
[2021-11-26] MEDS ORDERED: IBUP80TA PO (11:10)
[2021-11-26] MEDS ORDERED: PERCOCET PO (11:10)
[2021-11-26] MEDS ORDERED: KETOROLAC 30 MG/ML 1ML VIAL IV SCH (14:00)
== END 2021-11-26 10:05 | disposition home or self-care (01) ==
LOC: M SDC 05:59
PROVIDERS: ATTEND Obstetrics & Gynecology
DX: Z30.2 Encounter for sterilization (principal); Q43.8 Other specified congenital malformations of intestine; R19.00 Intra-abdominal and pelvic swelling, mass and lump, unspecified site
CPT/HCPCS: 36415; 58661; 85027; 86850; 86900; 86901; 88302; 88307; J0131; J1100; J1885; J2250; J2405; J2765; J3010

== ENCOUNTER 2023-08-10 20:10 | Emergency (ER) | payer OTHER ==
[~2023-08-10] VITALS: Ht 177.8 cm; Wt 82.5 kg
[~2023-08-10 20:10] MED LIST changes: +PERCOCET PO
[2023-08-10] MEDS ORDERED: keflex (20:47)
[2023-08-10] MEDS: dexAMETHasone 20MG/5ML VIAL IV ONE (23:10)
[2023-08-10 23:30] VITALS: BP 115/68; TEMP 97.4; O2SAT 99
== END 2023-08-11 00:15 | disposition home or self-care (01) ==
LOC: M ED 20:10
DX: R21 Rash and other nonspecific skin eruption (principal); T36.1X5A Adverse effect of cephalosporins and other beta-lactam antibiotics, initial encounter; F41.9 Anxiety disorder, unspecified; F32.9 Major depressive disorder, single episode, unspecified; D68.00 Von Willebrand disease, unspecified; G43.909 Migraine, unspecified, not intractable, without status migrainosus; Z88.1 Allergy status to other antibiotic agents; Z90.49 Acquired absence of other specified parts of digestive tract; Z79.2 Long term (current) use of antibiotics
CPT/HCPCS: 96374; 99284; J1100

== ENCOUNTER → 2023-09-30 | Outpatient (CLI) | payer OTHER ==
[~2023-09-30] MED LIST changes: +keflex
[2023-09-30 11:44] LABS: HEMATOCRIT 39.2 % (36.0-47.0); HEMOGLOBIN 12.5 g/dl (12.0-15.5); MEAN CORPUSCULAR HEMOGLOBIN 27.7 pg (27.0-33.0); MEAN CORPUSCULAR HGB CONC 31.9 g/dl (32.0-36.5); MEAN CORPUSCULAR VOLUME 86.9 fl (80.0-96.0); PLATELET COUNT, AUTOMATED 139 10^3/uL (150-450); RED BLOOD COUNT 4.51 10^6/uL (4.00-5.40); WHITE BLOOD COUNT 4.9 10^3/uL (4.0-10.0)
[2023-09-30 12:16] LABS: TOTAL 25(OH) VITAMIN D 28.8 NG/ML (20.0-100.0)
[2023-09-30 12:18] LABS: THYROID STIMULATING HORMONE 2.552 uIU/ML (0.55-4.78)
[2023-09-30 12:19] LABS: FREE T4 1.04 NG/DL (0.89-1.76)
[2023-09-30 12:20] LABS: ALBUMIN 3.8 G/DL (3.2-5.2); ALKALINE PHOSPHATASE 106 U/L (46-116); ALT/SGPT 35 U/L (7.0-40); AST/SGOT 21 U/L (<34); BILIRUBIN,TOTAL 0.4 MG/DL (0.3-1.2); BLOOD UREA NITROGEN 11 MG/DL (9-23); CALCIUM LEVEL 9.2 MG/DL (8.5-10.1); CARBON DIOXIDE LEVEL 27 MMOL/L (20-31); CHLORIDE LEVEL 107 MMOL/L (98-107); CHOLESTEROL LEVEL 219 MG/DL (<200); CHOLESTEROL RISK RATIO 3.53 (<5); CREATININE FOR GFR 0.79 MG/DL (0.55-1.30); GLOMERULAR FILTRATION RATE > 60.0 (>60); GLUCOSE, FASTING 84 MG/DL (60-100); LDL CHOLESTEROL 141.4 MG/DL (<100); POTASSIUM SERUM 3.9 MMOL/L (3.5-5.1); SODIUM LEVEL 142 MMOL/L (136-145); TOTAL PROTEIN 6.5 G/DL (5.7-8.2); TRIGLYCERIDES LEVEL 78 MG/DL (<150)
[2023-09-30 13:21] LABS: HEMOGLOBIN A1c 5.4 % (4.0-6.0)
== END ==
LOC: M WUC 10:18
PROVIDERS: ATTEND Physician Assistant
DX: E78.5 Hyperlipidemia, unspecified (principal)

== ENCOUNTER 2025-02-17 17:03 | Emergency (ER) | payer OTHER ==
[~2025-02-17] VITALS: Ht 177.8 cm; Wt 82.0 kg
[~2025-02-17 17:03] MED LIST changes: +MELA10TA22 PO; -RA M10TA PO
[2025-02-17] MEDS ORDERED: FLUO40CA (17:22)
[2025-02-17] MEDS ORDERED: TIZA2TA (17:22)
[2025-02-17] MEDS ORDERED: IBUP80TA PO (19:35)
[2025-02-17] MEDS: IBUPROFEN 800 MG TAB PO ONE (19:39)
[2025-02-17 19:43] VITALS: BP 133/79; TEMP 97.1; O2SAT 100
== END 2025-02-17 19:46 | disposition home or self-care (01) ==
LOC: M ED 17:03
DX: S63.501A Unspecified sprain of right wrist, initial encounter (principal); Z88.1 Allergy status to other antibiotic agents; Z79.1 Long term (current) use of non-steroidal anti-inflammatories (NSAID); Z79.899 Other long term (current) drug therapy; W00.0XXA Fall on same level due to ice and snow, initial encounter; Y92.89 Other specified places as the place of occurrence of the external cause; Y93.89 Activity, other specified; Y99.8 Other external cause status